=== PATIENT | male | born 1955 | race Caucasian/White ===

== ENCOUNTER 2017-07-21 13:48 | Emergency (ER) | payer BC, SELFPAY ==
[~2017-07-21] VITALS: Ht 180.3 cm; Wt 104.3 kg
[~2017-07-21 13:48] MED LIST: AMLO5 PO; ASPI325 PO; ASPI81CH PO; CARV25 PO; CARV3.125 PO; CARV6.25 PO; CEPH500 PO; CITA20 PO; DOCU100 PO; DULO30 PO; FERR325 PO; GABA300 PO; HYDACE10B PO; HYDACE5 PO; INSUASPI SC; INSULANI; INSULANI SC; INSULANPEN SQ; LISI5 PO; Lisinopril2.5 MG PO; Lopressor 25 mg25 MG PO; METF500 PO; METF500C PO; MULVITMINF PO; NAPR500 PO; NITR.4SL SL; OMEP20ER PO; PRAV20 PO; PRAVASTATIN; RANI150 PO; Simvastatin20 MG PO; TRAM50 PO; TRAZ100 PO; Testostero100 MG/1 M IM
[2017-07-21 15:43] LABS: BASOPHILS ABSOLUTE AUTO 0.04 K/mm3 (0.00-0.23); BASOPHILS PERCENT AUTO 1 % (0-2); EOSINOPHILS ABSOLUTE AUTO 0.19 K/mm3 (0.00-0.68); EOSINOPHILS PERCENT AUTO 3 % (0-6); Hematocrit 40.1 % (37.0-53.0); IMMATURE GRAN ABSOLUTE AUTO 0.03 K/mm3 (0.00-0.10); IMMATURE GRAN PERCENT AUTO 1 % (0-1); LYMPHOCYTES ABSOLUTE AUTO 1.07 K/mm3 (0.84-5.20); LYMPHOCYTES PERCENT AUTO 17 % (21-46); MONOCYTES PERCENT AUTO 11 % (4-13); Mean Corpuscular HGB 29.2 pg (26.0-34.0); Mean Corpuscular HGB Conc 34.9 g/dL (31.5-36.5); Mean Corpuscular Volume 84 fL (80-100); Mean Platelet Volume 9.9 fL (9.1-12.4); NEUTROPHILS ABSOLUTE AUTO 4.18 K/mm3 (1.96-9.15); NEUTROPHILS PERCENT AUTO 67 % (41-73); Platelet Count 221 K/mm3 (150-400); RDW Coefficient Variation 11.8 % (11.7-14.2); RDW Standard Deviation 35.8 fL (35.1-46.3); White Blood Cell Count 6.21 K/mm3 (4.00-11.30)
[2017-07-21 16:05] LABS: Alanine Aminotransfer (ALT/SGP 16 U/L (12-78); Albumin, Blood 3.3 g/dL (3.4-5.0); Albumin/Globulin Ratio 0.9 (0.8-1.8); Alk Phos 182 U/L (50-136); Anion Gap 8 mmol/L (6-16); Aspartate Aminotrans (AST/SGOT 13 U/L (12-37); Bilirubin, Total 0.5 mg/dL (0.1-1.0); Blood Urea Nitrogen 26 mg/dL (8-24); Bun/Creatinine Ratio 16.5 (12.0-20.0); CO2, Blood 25 mmol/L (21-32); Calcium, Blood 8.5 mg/dL (8.5-10.1); Chloride, Blood 105 mmol/L (98-108); Creatinine, Blood 1.58 mg/dL (0.60-1.20); Globulin, Blood 3.7 g/dL (2.2-4.0); Glomerular Filtration Rate 47 (60-); Glucose, Blood 534 mg/dL (70-99); Potassium, Blood 4.6 mmol/L (3.5-5.5); Sodium, Blood 138 mmol/L (136-145); Troponin I <0.015 ng/mL (0.000-0.040)
[2017-07-21] MEDS ORDERED: PREG50 PO (16:57)
[2017-07-21] MEDS ORDERED: ASPI325 PO (16:57)
[2017-07-21] MEDS ORDERED: LISI5 PO (16:57)
[2017-07-21] MEDS ORDERED: Ultram50 MG PO (18:26)
[2017-07-21] MEDS ORDERED: Zofran Odt4 MG PO (18:26)
[2017-08-26] MEDS ORDERED: EVENING PRIMR1000 MG PO (09:24)
[2017-08-26] MEDS ORDERED: CHOL10002 PO (09:24)
[2017-08-26] MEDS ORDERED: Hair, Skin & N1 EACH PO (09:26)
[2018-05-26] MEDS ORDERED: INSU100I6 (11:27)
[2018-05-26] MEDS ORDERED: ASPI81CH PO (11:28)
[2018-05-26] MEDS ORDERED: Fish Oil 10001000 MG PO (11:29)
[2018-05-26] MEDS ORDERED: PRAV20 PO (11:29)
== END 2017-07-21 18:56 | disposition home or self-care (01) ==
LOC: ER 13:48
PROVIDERS: Emergency Medicine
DX: K80.20 Calculus of gallbladder without cholecystitis without obstruction (principal); E11.40 Type 2 diabetes mellitus with diabetic neuropathy, unspecified; Z79.4 Long term (current) use of insulin; Z79.899 Other long term (current) drug therapy; Z79.82 Long term (current) use of aspirin
CPT/HCPCS: 36415; 74022; 74176; 80053; 83690; 84484; 85025; 93005; 93010; 99284; J7030

== ENCOUNTER 2017-09-07 12:15 | Emergency (ER) | payer BC, SELFPAY ==
[~2017-09-07] VITALS: Ht 180.3 cm; Wt 95.2 kg
[~2017-09-07 12:15] MED LIST changes: +CHOL10002 PO; +EVENING PRIMR1000 MG PO; +Hair, Skin & N1 EACH PO; +PREG50 PO; +Ultram50 MG PO; +Zofran Odt4 MG PO
[2017-09-07 12:41] LABS: BASOPHILS ABSOLUTE AUTO 0.03 K/mm3 (0.00-0.23); BASOPHILS PERCENT AUTO 1 % (0-2); EOSINOPHILS ABSOLUTE AUTO 0.11 K/mm3 (0.00-0.68); EOSINOPHILS PERCENT AUTO 2 % (0-6); Hematocrit 40.5 % (37.0-53.0); Hemoglobin 14.2 g/dL (13.5-17.5); IMMATURE GRAN ABSOLUTE AUTO 0.01 K/mm3 (0.00-0.10); IMMATURE GRAN PERCENT AUTO 0 % (0-1); LYMPHOCYTES ABSOLUTE AUTO 1.45 K/mm3 (0.84-5.20); LYMPHOCYTES PERCENT AUTO 28 % (21-46); MONOCYTES ABSOLUTE AUTO 0.72 K/mm3 (0.16-1.47); MONOCYTES PERCENT AUTO 14 % (4-13); Mean Corpuscular HGB 28.9 pg (26.0-34.0); Mean Corpuscular HGB Conc 35.1 g/dL (31.5-36.5); Mean Corpuscular Volume 82 fL (80-100); Mean Platelet Volume 9.8 fL (9.1-12.4); NEUTROPHILS ABSOLUTE AUTO 2.88 K/mm3 (1.96-9.15); NEUTROPHILS PERCENT AUTO 55 % (41-73); Platelet Count 189 K/mm3 (150-400); RDW Coefficient Variation 11.8 % (11.7-14.2); RDW Standard Deviation 34.7 fL (35.1-46.3); Red Blood Cell Count 4.92 M/mm3 (4.30-5.90)
[2017-09-07 13:01] LABS: Albumin, Blood 3.1 g/dL (3.4-5.0); Albumin/Globulin Ratio 0.8 (0.8-1.8); Bilirubin, Total 0.7 mg/dL (0.1-1.0); Bun/Creatinine Ratio 16.3 (12.0-20.0); Calcium, Blood 8.9 mg/dL (8.5-10.1); Creatinine, Blood 1.47 mg/dL (0.60-1.20); Globulin, Blood 3.7 g/dL (2.2-4.0); Potassium, Blood 3.8 mmol/L (3.5-5.5); Total Protein, Blood 6.8 g/dL (6.4-8.2)
[2017-09-07] MEDS ORDERED: Norco 5-325 Ta1 EACH PO (14:30)
[2018-05-26] MEDS ORDERED: INSU100I6 (11:27)
[2018-05-26] MEDS ORDERED: ASPI81CH PO (11:28)
[2018-05-26] MEDS ORDERED: PRAV20 PO (11:29)
[2018-05-26] MEDS ORDERED: Fish Oil 10001000 MG PO (11:29)
== END 2017-09-07 14:39 | disposition home or self-care (01) ==
LOC: ER 12:15
PROVIDERS: Psychiatry & Neurology Psychiatry
DX: R10.13 Epigastric pain (principal); E11.9 Type 2 diabetes mellitus without complications; I25.10 Atherosclerotic heart disease of native coronary artery without angina pectoris; Z88.8 Allergy status to other drugs, medicaments and biological substances; Z79.4 Long term (current) use of insulin; Z79.82 Long term (current) use of aspirin; Z79.899 Other long term (current) drug therapy
CPT/HCPCS: 36415; 80053; 83690; 85025; 99283

== ENCOUNTER 2017-10-07 11:42 | Inpatient (IN) | payer BC, SELFPAY ==
[~2017-10-07] VITALS: Ht 180.3 cm; Wt 99.8 kg
[~2017-10-07 11:42] MED LIST changes: +Norco 5-325 Ta1 EACH PO
[2017-10-07] MEDS ORDERED: Hydrocodone-Ap1 EA23 PO (11:58)
[2017-10-07 12:46] LABS: BASOPHILS ABSOLUTE AUTO 0.04 K/mm3 (0.00-0.23); BASOPHILS PERCENT AUTO 1 % (0-2); EOSINOPHILS ABSOLUTE AUTO 0.15 K/mm3 (0.00-0.68); EOSINOPHILS PERCENT AUTO 3 % (0-6); Hematocrit 40.3 % (37.0-53.0); Hemoglobin 13.5 g/dL (13.5-17.5); IMMATURE GRAN ABSOLUTE AUTO 0.02 K/mm3 (0.00-0.10); IMMATURE GRAN PERCENT AUTO 0 % (0-1); LYMPHOCYTES ABSOLUTE AUTO 1.05 K/mm3 (0.84-5.20); LYMPHOCYTES PERCENT AUTO 20 % (21-46); MONOCYTES ABSOLUTE AUTO 0.68 K/mm3 (0.16-1.47); MONOCYTES PERCENT AUTO 13 % (4-13); Mean Corpuscular HGB 28.8 pg (26.0-34.0); Mean Corpuscular HGB Conc 33.5 g/dL (31.5-36.5); Mean Corpuscular Volume 86 fL (80-100); Mean Platelet Volume 9.1 fL (9.1-12.4); NEUTROPHILS ABSOLUTE AUTO 3.29 K/mm3 (1.96-9.15); NEUTROPHILS PERCENT AUTO 63 % (41-73); Platelet Count 283 K/mm3 (150-400); RDW Coefficient Variation 12.4 % (11.7-14.2); RDW Standard Deviation 38.1 fL (35.1-46.3); Red Blood Cell Count 4.69 M/mm3 (4.30-5.90); White Blood Cell Count 5.23 K/mm3 (4.00-11.30)
[2017-10-07 12:56] LABS: Albumin, Blood 3.1 g/dL (3.4-5.0); Albumin/Globulin Ratio 0.8 (0.8-1.8); Bilirubin, Total 0.6 mg/dL (0.1-1.0); Bun/Creatinine Ratio 19.5 (12.0-20.0); Calcium, Blood 8.2 mg/dL (8.5-10.1); Creatinine, Blood 1.54 mg/dL (0.60-1.20); Globulin, Blood 4.1 g/dL (2.2-4.0); Potassium, Blood 4.2 mmol/L (3.5-5.5); Total Protein, Blood 7.2 g/dL (6.4-8.2)
[2017-10-07] MEDS ORDERED: Novolog100 UNIT/2 SC (18:20)
[2017-10-07] MEDS ORDERED: ASPI81CH PO (18:20)
[2017-10-08 04:05] LABS: BASOPHILS ABSOLUTE AUTO 0.03 K/mm3 (0.00-0.23); BASOPHILS PERCENT AUTO 1 % (0-2); EOSINOPHILS ABSOLUTE AUTO 0.17 K/mm3 (0.00-0.68); EOSINOPHILS PERCENT AUTO 3 % (0-6); Hematocrit 35.9 % (37.0-53.0); IMMATURE GRAN ABSOLUTE AUTO 0.01 K/mm3 (0.00-0.10); IMMATURE GRAN PERCENT AUTO 0 % (0-1); LYMPHOCYTES ABSOLUTE AUTO 1.29 K/mm3 (0.84-5.20); LYMPHOCYTES PERCENT AUTO 21 % (21-46); MONOCYTES ABSOLUTE AUTO 0.87 K/mm3 (0.16-1.47); MONOCYTES PERCENT AUTO 14 % (4-13); Mean Corpuscular HGB 28.7 pg (26.0-34.0); Mean Corpuscular HGB Conc 33.4 g/dL (31.5-36.5); Mean Corpuscular Volume 86 fL (80-100); Mean Platelet Volume 8.9 fL (9.1-12.4); NEUTROPHILS PERCENT AUTO 61 % (41-73); Platelet Count 225 K/mm3 (150-400); RDW Coefficient Variation 12.7 % (11.7-14.2); RDW Standard Deviation 38.9 fL (35.1-46.3); Red Blood Cell Count 4.18 M/mm3 (4.30-5.90); White Blood Cell Count 6.07 K/mm3 (4.00-11.30)
[2017-10-08 04:22] LABS: International Normalized Ratio 0.96
[2017-10-08 04:34] LABS: Albumin, Blood 2.7 g/dL (3.4-5.0); Albumin/Globulin Ratio 0.8 (0.8-1.8); Bilirubin, Total 0.6 mg/dL (0.1-1.0); Bun/Creatinine Ratio 17.7 (12.0-20.0); Calcium, Blood 8.3 mg/dL (8.5-10.1); Creatinine, Blood 1.64 mg/dL (0.60-1.20); Globulin, Blood 3.4 g/dL (2.2-4.0); Potassium, Blood 4.2 mmol/L (3.5-5.5); Total Protein, Blood 6.1 g/dL (6.4-8.2)
[2017-10-09 04:47] LABS: BASOPHILS ABSOLUTE AUTO 0.01 K/mm3 (0.00-0.23); BASOPHILS PERCENT AUTO 0 % (0-2); EOSINOPHILS PERCENT AUTO 0 % (0-6); Hematocrit 35.6 % (37.0-53.0); Hemoglobin 12.1 g/dL (13.5-17.5); IMMATURE GRAN ABSOLUTE AUTO 0.03 K/mm3 (0.00-0.10); IMMATURE GRAN PERCENT AUTO 0 % (0-1); LYMPHOCYTES ABSOLUTE AUTO 0.47 K/mm3 (0.84-5.20); LYMPHOCYTES PERCENT AUTO 7 % (21-46); MONOCYTES PERCENT AUTO 9 % (4-13); Mean Corpuscular HGB 29.5 pg (26.0-34.0); Mean Corpuscular Volume 87 fL (80-100); Mean Platelet Volume 9.8 fL (9.1-12.4); NEUTROPHILS ABSOLUTE AUTO 5.73 K/mm3 (1.96-9.15); NEUTROPHILS PERCENT AUTO 84 % (41-73); Platelet Count 226 K/mm3 (150-400); RDW Coefficient Variation 12.7 % (11.7-14.2); RDW Standard Deviation 39.6 fL (35.1-46.3); White Blood Cell Count 6.84 K/mm3 (4.00-11.30)
[2017-10-09 05:19] LABS: Albumin, Blood 2.8 g/dL (3.4-5.0); Anion Gap 8 mmol/L (6-16); Blood Urea Nitrogen 30 mg/dL (8-24); Bun/Creatinine Ratio 17.6 (12.0-20.0); CO2, Blood 24 mmol/L (21-32); Calcium, Blood 8.7 mg/dL (8.5-10.1); Chloride, Blood 110 mmol/L (98-108); Glomerular Filtration Rate 43 (60-); Glucose, Blood 241 mg/dL (70-99); Phosphorus, Blood 3.3 mg/dL (2.5-4.9); Potassium, Blood 4.5 mmol/L (3.5-5.5); Sodium, Blood 142 mmol/L (136-145)
[2017-10-09] MEDS ORDERED: MECL12.5 PO (13:50)
== END 2017-10-09 14:29 | disposition home or self-care (01) | DRG 418 ==
LOC: ER 11:42 → SURS 16:30
PROVIDERS: Emergency Medicine; Family Medicine; Internal Medicine; Surgery
PROC: BF131ZZ Fluoroscopy of Gallbladder and Bile Ducts using Low Osmolar Contrast (ICD-10-PCS; 2017-10-08)
PROC: 0FT44ZZ Resection of Gallbladder, Percutaneous Endoscopic Approach (ICD-10-PCS; principal; 2017-10-08 14:35)
DX: K80.01 Calculus of gallbladder with acute cholecystitis with obstruction (principal); Q60.0 Renal agenesis, unilateral; E78.5 Hyperlipidemia, unspecified; E11.22 Type 2 diabetes mellitus with diabetic chronic kidney disease; E11.65 Type 2 diabetes mellitus with hyperglycemia; N18.3 Chronic kidney disease, stage 3 (moderate); I12.9 Hypertensive chronic kidney disease with stage 1 through stage 4 chronic kidney disease, or unspecified chronic kidney disease; E11.42 Type 2 diabetes mellitus with diabetic polyneuropathy; I25.10 Atherosclerotic heart disease of native coronary artery without angina pectoris; F32.9 Major depressive disorder, single episode, unspecified; I25.2 Old myocardial infarction; Z95.1 Presence of aortocoronary bypass graft; Z95.5 Presence of coronary angioplasty implant and graft; Z79.84 Long term (current) use of oral hypoglycemic drugs; Z79.82 Long term (current) use of aspirin; Z79.4 Long term (current) use of insulin; Z79.899 Other long term (current) drug therapy; Z88.8 Allergy status to other drugs, medicaments and biological substances
CPT/HCPCS: 36415; 74300; 78226; 80053; 80069; 82947; 83036; 85025; 85610; 85730; 88304; 93005; 93010; 96365; 96366; 99285; A9537; C1729; J0295; J1100; J1644; J1815; J2250; J2370; J2405; J3010; J7030; J7042; J7120

== ENCOUNTER 2017-10-22 23:52 | Emergency (ER) | payer BC, SELFPAY ==
[~2017-10-22] VITALS: Ht 180.3 cm; Wt 104.3 kg
[~2017-10-22 23:52] MED LIST changes: +Hydrocodone-Ap1 EA23 PO; +MECL12.5 PO; +Novolog100 UNIT/2 SC
[2017-10-23 01:34] LABS: BASOPHILS ABSOLUTE AUTO 0.05 K/mm3 (0.00-0.23); BASOPHILS PERCENT AUTO 1 % (0-2); EOSINOPHILS PERCENT AUTO 5 % (0-6); Hematocrit 38.7 % (37.0-53.0); Hemoglobin 13.2 g/dL (13.5-17.5); IMMATURE GRAN ABSOLUTE AUTO 0.03 K/mm3 (0.00-0.10); IMMATURE GRAN PERCENT AUTO 1 % (0-1); LYMPHOCYTES ABSOLUTE AUTO 1.75 K/mm3 (0.84-5.20); LYMPHOCYTES PERCENT AUTO 27 % (21-46); MONOCYTES ABSOLUTE AUTO 0.87 K/mm3 (0.16-1.47); MONOCYTES PERCENT AUTO 13 % (4-13); Mean Corpuscular HGB 29.2 pg (26.0-34.0); Mean Corpuscular HGB Conc 34.1 g/dL (31.5-36.5); Mean Corpuscular Volume 86 fL (80-100); Mean Platelet Volume 9.6 fL (9.1-12.4); NEUTROPHILS ABSOLUTE AUTO 3.48 K/mm3 (1.96-9.15); NEUTROPHILS PERCENT AUTO 54 % (41-73); Platelet Count 214 K/mm3 (150-400); RDW Standard Deviation 40.1 fL (35.1-46.3); Red Blood Cell Count 4.52 M/mm3 (4.30-5.90); White Blood Cell Count 6.48 K/mm3 (4.00-11.30)
[2017-10-23 01:49] LABS: Albumin, Blood 3.1 g/dL (3.4-5.0); Albumin/Globulin Ratio 0.9 (0.8-1.8); Bilirubin, Total 0.5 mg/dL (0.1-1.0); Bun/Creatinine Ratio 18.5 (12.0-20.0); Calcium, Blood 8.4 mg/dL (8.5-10.1); Creatinine, Blood 1.68 mg/dL (0.60-1.20); Globulin, Blood 3.4 g/dL (2.2-4.0); Potassium, Blood 4.3 mmol/L (3.5-5.5); Total Protein, Blood 6.5 g/dL (6.4-8.2); Troponin I 0.017 ng/mL (0.000-0.040)
== END 2017-10-23 04:15 | disposition home or self-care (01) ==
LOC: ER 23:52
PROVIDERS: Emergency Medicine
DX: R10.9 Unspecified abdominal pain (principal); Z88.8 Allergy status to other drugs, medicaments and biological substances; Z79.899 Other long term (current) drug therapy; Z79.891 Long term (current) use of opiate analgesic; Z79.4 Long term (current) use of insulin; Z79.82 Long term (current) use of aspirin; E11.9 Type 2 diabetes mellitus without complications
CPT/HCPCS: 36415; 74176; 80053; 83690; 84484; 85025; 93005; 93010; 96374; 96375; 96376; 99284; J2405; J3010

== ENCOUNTER 2017-11-22 22:21 | Observation (INO) | payer BC, SELFPAY ==
[~2017-11-22] VITALS: Ht 180.3 cm; Wt 109.2 kg
[2017-11-22 23:10] LABS: BASOPHILS ABSOLUTE AUTO 0.03 K/mm3 (0.00-0.23); BASOPHILS PERCENT AUTO 1 % (0-2); EOSINOPHILS ABSOLUTE AUTO 0.25 K/mm3 (0.00-0.68); EOSINOPHILS PERCENT AUTO 4 % (0-6); Hematocrit 38.9 % (37.0-53.0); Hemoglobin 13.2 g/dL (13.5-17.5); IMMATURE GRAN ABSOLUTE AUTO 0.01 K/mm3 (0.00-0.10); IMMATURE GRAN PERCENT AUTO 0 % (0-1); LYMPHOCYTES ABSOLUTE AUTO 1.08 K/mm3 (0.84-5.20); LYMPHOCYTES PERCENT AUTO 18 % (21-46); MONOCYTES PERCENT AUTO 8 % (4-13); Mean Corpuscular HGB 28.9 pg (26.0-34.0); Mean Corpuscular HGB Conc 33.9 g/dL (31.5-36.5); Mean Corpuscular Volume 85 fL (80-100); Mean Platelet Volume 10.1 fL (9.1-12.4); NEUTROPHILS ABSOLUTE AUTO 4.07 K/mm3 (1.96-9.15); NEUTROPHILS PERCENT AUTO 69 % (41-73); Platelet Count 194 K/mm3 (150-400); RDW Coefficient Variation 12.6 % (11.7-14.2); RDW Standard Deviation 38.7 fL (35.1-46.3); Red Blood Cell Count 4.56 M/mm3 (4.30-5.90); White Blood Cell Count 5.94 K/mm3 (4.00-11.30)
[2017-11-22 23:31] LABS: Alanine Aminotransfer (ALT/SGP 16 U/L (12-78); Albumin, Blood 2.9 g/dL (3.4-5.0); Albumin/Globulin Ratio 0.9 (0.8-1.8); Alk Phos 93 U/L (50-136); Anion Gap 8 mmol/L (6-16); Aspartate Aminotrans (AST/SGOT 18 U/L (12-37); Bilirubin, Total 0.8 mg/dL (0.1-1.0); Blood Urea Nitrogen 25 mg/dL (8-24); Bun/Creatinine Ratio 14.9 (12.0-20.0); CO2, Blood 24 mmol/L (21-32); Calcium, Blood 8.5 mg/dL (8.5-10.1); Chloride, Blood 113 mmol/L (98-108); Creatinine, Blood 1.68 mg/dL (0.60-1.20); Globulin, Blood 3.4 g/dL (2.2-4.0); Glomerular Filtration Rate 44 (60-); Glucose, Blood 109 mg/dL (70-99); Potassium, Blood 3.9 mmol/L (3.5-5.5); Sodium, Blood 145 mmol/L (136-145); Total Protein, Blood 6.3 g/dL (6.4-8.2); Troponin I <0.015 ng/mL (0.000-0.040)
[2017-11-23 06:20] LABS: BASOPHILS ABSOLUTE AUTO 0.03 K/mm3 (0.00-0.23); BASOPHILS PERCENT AUTO 0 % (0-2); EOSINOPHILS PERCENT AUTO 2 % (0-6); Hematocrit 38.2 % (37.0-53.0); Hemoglobin 13.1 g/dL (13.5-17.5); IMMATURE GRAN ABSOLUTE AUTO 0.05 K/mm3 (0.00-0.10); IMMATURE GRAN PERCENT AUTO 0 % (0-1); LYMPHOCYTES ABSOLUTE AUTO 0.95 K/mm3 (0.84-5.20); LYMPHOCYTES PERCENT AUTO 8 % (21-46); MONOCYTES ABSOLUTE AUTO 1.16 K/mm3 (0.16-1.47); MONOCYTES PERCENT AUTO 10 % (4-13); Mean Corpuscular HGB 29.4 pg (26.0-34.0); Mean Corpuscular HGB Conc 34.3 g/dL (31.5-36.5); Mean Corpuscular Volume 86 fL (80-100); Mean Platelet Volume 10.1 fL (9.1-12.4); NEUTROPHILS ABSOLUTE AUTO 9.87 K/mm3 (1.96-9.15); NEUTROPHILS PERCENT AUTO 81 % (41-73); Platelet Count 199 K/mm3 (150-400); RDW Coefficient Variation 12.8 % (11.7-14.2); RDW Standard Deviation 39.9 fL (35.1-46.3); Red Blood Cell Count 4.45 M/mm3 (4.30-5.90); White Blood Cell Count 12.26 K/mm3 (4.00-11.30)
[2017-11-23 07:08] LABS: Albumin, Blood 2.9 g/dL (3.4-5.0); Albumin/Globulin Ratio 0.9 (0.8-1.8); Bilirubin, Total 0.7 mg/dL (0.1-1.0); Bun/Creatinine Ratio 16.7 (12.0-20.0); Calcium, Blood 8.2 mg/dL (8.5-10.1); Creatinine, Blood 1.92 mg/dL (0.60-1.20); Globulin, Blood 3.3 g/dL (2.2-4.0); Potassium, Blood 4.6 mmol/L (3.5-5.5); Total Protein, Blood 6.2 g/dL (6.4-8.2)
== END 2017-11-23 13:15 | disposition home or self-care (01) ==
LOC: ER 22:21 → SURS 22:22
PROVIDERS: Emergency Medicine; Internal Medicine
DX: T38.3X1A Poisoning by insulin and oral hypoglycemic [antidiabetic] drugs, accidental (unintentional), initial encounter (principal); E11.649 Type 2 diabetes mellitus with hypoglycemia without coma; E11.40 Type 2 diabetes mellitus with diabetic neuropathy, unspecified; E11.22 Type 2 diabetes mellitus with diabetic chronic kidney disease; I12.9 Hypertensive chronic kidney disease with stage 1 through stage 4 chronic kidney disease, or unspecified chronic kidney disease; N18.2 Chronic kidney disease, stage 2 (mild); E78.5 Hyperlipidemia, unspecified; F32.9 Major depressive disorder, single episode, unspecified; I25.10 Atherosclerotic heart disease of native coronary artery without angina pectoris; Z79.4 Long term (current) use of insulin; Z79.82 Long term (current) use of aspirin; Z79.899 Other long term (current) drug therapy; Z95.5 Presence of coronary angioplasty implant and graft; Y92.830 Public park as the place of occurrence of the external cause
CPT/HCPCS: 36415; 80053; 82947; 83036; 84484; 85025; 93005; 93010; 96361; 96372; 96374; 96375; 99285; G0378; J1610; J1650; J1815; J2405; J7131

== ENCOUNTER 2018-01-05 09:54 | Day surgery (SDC) | payer BC, SELFPAY ==
[~2018-01-05] VITALS: Ht 180.3 cm; Wt 110.9 kg
== END 2018-01-05 12:53 | disposition home or self-care (01) ==
LOC: ORSCSDS 09:54
PROVIDERS: Internal Medicine Gastroenterology
PROC: 0DB68ZX Excision of Stomach, Via Natural or Artificial Opening Endoscopic, Diagnostic (ICD-10-PCS; principal; 2018-01-05 11:15)
PROC: 0DB58ZX Excision of Esophagus, Via Natural or Artificial Opening Endoscopic, Diagnostic (ICD-10-PCS; principal; 2018-01-05 11:15)
PROC: 0DBE8ZX Excision of Large Intestine, Via Natural or Artificial Opening Endoscopic, Diagnostic (ICD-10-PCS; principal; 2018-01-05 11:15)
PROC: 0DBK8ZX Excision of Ascending Colon, Via Natural or Artificial Opening Endoscopic, Diagnostic (ICD-10-PCS; principal; 2018-01-05 11:15)
PROC: 0DB98ZX Excision of Duodenum, Via Natural or Artificial Opening Endoscopic, Diagnostic (ICD-10-PCS; principal; 2018-01-05 11:15)
DX: R19.7 Diarrhea, unspecified (principal); K29.80 Duodenitis without bleeding; K29.70 Gastritis, unspecified, without bleeding; K21.9 Gastro-esophageal reflux disease without esophagitis; D12.2 Benign neoplasm of ascending colon; K57.30 Diverticulosis of large intestine without perforation or abscess without bleeding; E11.29 Type 2 diabetes mellitus with other diabetic kidney complication; I12.9 Hypertensive chronic kidney disease with stage 1 through stage 4 chronic kidney disease, or unspecified chronic kidney disease; N18.3 Chronic kidney disease, stage 3 (moderate); I25.10 Atherosclerotic heart disease of native coronary artery without angina pectoris; Z79.4 Long term (current) use of insulin; Z79.82 Long term (current) use of aspirin; Z79.899 Other long term (current) drug therapy
CPT/HCPCS: 82947; 88305; 88342; J1980; J7120

== ENCOUNTER 2018-07-07 09:16 | Emergency (ER) | payer BC ==
[~2018-07-07] VITALS: Ht 180.3 cm; Wt 108.9 kg
[~2018-07-07 09:16] MED LIST changes: +Fish Oil 10001000 MG PO; +INSU100I6
[2018-07-07 11:17] LABS: BASOPHILS ABSOLUTE AUTO 0.01 K/mm3 (0.00-0.23); BASOPHILS PERCENT AUTO 0 % (0-2); EOSINOPHILS ABSOLUTE AUTO 0.12 K/mm3 (0.00-0.68); EOSINOPHILS PERCENT AUTO 3 % (0-6); Hematocrit 35.6 % (37.0-53.0); Hemoglobin 11.8 g/dL (13.5-17.5); IMMATURE GRAN ABSOLUTE AUTO 0.02 K/mm3 (0.00-0.10); IMMATURE GRAN PERCENT AUTO 0 % (0-1); LYMPHOCYTES ABSOLUTE AUTO 0.87 K/mm3 (0.84-5.20); LYMPHOCYTES PERCENT AUTO 18 % (21-46); MONOCYTES PERCENT AUTO 17 % (4-13); Mean Corpuscular HGB 29.1 pg (26.0-34.0); Mean Corpuscular HGB Conc 33.1 g/dL (31.5-36.5); Mean Corpuscular Volume 88 fL (80-100); Mean Platelet Volume 9.9 fL (9.1-12.4); NEUTROPHILS ABSOLUTE AUTO 2.94 K/mm3 (1.96-9.15); NEUTROPHILS PERCENT AUTO 62 % (41-73); Platelet Count 183 K/mm3 (150-400); RDW Coefficient Variation 12.1 % (11.7-14.2); RDW Standard Deviation 38.7 fL (35.1-46.3); Red Blood Cell Count 4.05 M/mm3 (4.30-5.90); White Blood Cell Count 4.76 K/mm3 (4.00-11.30)
[2018-07-07 11:54] LABS: Albumin/Globulin Ratio 0.8 (0.8-1.8); Bilirubin, Total 0.5 mg/dL (0.1-1.0); Bun/Creatinine Ratio 20.6 (12.0-20.0); Calcium, Blood 8.2 mg/dL (8.5-10.1); Creatinine, Blood 1.75 mg/dL (0.60-1.20); Globulin, Blood 3.6 g/dL (2.2-4.0); Total Protein, Blood 6.6 g/dL (6.4-8.2)
[2018-07-07 14:40] LABS: Source, Urine Voided
[2018-07-07 14:44] LABS: Appearance, Urine Clear (Clear); Bilirubin, Urine Neg (Neg); Blood, Urine 2+ (Neg); Color, Urine Yellow (P-Yellow); Glucose Qualitative, Urine Neg (Neg); Ketones, Urine Neg (Neg); Leukocyte Esterase, Urine Neg (Neg); Nitrite, Urine Neg (Neg); Protein, Urine 3+ (Neg); Specific Gravity, Urine 1.025 (1.003-1.022); Urobilinogen, Urine NORM (Normal)
[2018-07-07 15:03] LABS: Bacteria Mod /hpf; Squamous Epithelial Cells Few /hpf (Few)
== END 2018-07-07 15:30 | disposition home or self-care (01) ==
LOC: ER 09:16
PROVIDERS: Emergency Medicine
DX: E86.0 Dehydration (principal); R19.7 Diarrhea, unspecified; E11.22 Type 2 diabetes mellitus with diabetic chronic kidney disease; N18.3 Chronic kidney disease, stage 3 (moderate); Z88.8 Allergy status to other drugs, medicaments and biological substances; Z79.899 Other long term (current) drug therapy; Z79.4 Long term (current) use of insulin; Z79.82 Long term (current) use of aspirin
CPT/HCPCS: 36415; 80053; 81001; 85025; 87077; 87086; 87186; 93005; 93010; 96360; 96361; 99284-25; J7030

== ENCOUNTER 2018-09-24 08:02 | Inpatient (IN) | payer BC ==
[~2018-09-24] VITALS: Ht 180.3 cm; Wt 107.2 kg
[2018-09-24] MEDS ORDERED: TOUJEO SOL300 UNIT/1 SQ (08:40)
[2018-09-24 08:53] LABS: BASOPHILS ABSOLUTE AUTO 0.06 K/mm3 (0.00-0.23); BASOPHILS PERCENT AUTO 1 % (0-2); EOSINOPHILS ABSOLUTE AUTO 0.41 K/mm3 (0.00-0.68); EOSINOPHILS PERCENT AUTO 6 % (0-6); Hematocrit 37.9 % (37.0-53.0); IMMATURE GRAN ABSOLUTE AUTO 0.02 K/mm3 (0.00-0.10); IMMATURE GRAN PERCENT AUTO 0 % (0-1); LYMPHOCYTES ABSOLUTE AUTO 0.69 K/mm3 (0.84-5.20); LYMPHOCYTES PERCENT AUTO 10 % (21-46); MONOCYTES ABSOLUTE AUTO 0.67 K/mm3 (0.16-1.47); MONOCYTES PERCENT AUTO 10 % (4-13); Mean Corpuscular HGB 28.2 pg (26.0-34.0); Mean Corpuscular HGB Conc 31.7 g/dL (31.5-36.5); Mean Corpuscular Volume 89 fL (80-100); Mean Platelet Volume 10.9 fL (9.1-12.4); NEUTROPHILS ABSOLUTE AUTO 5.05 K/mm3 (1.96-9.15); NEUTROPHILS PERCENT AUTO 73 % (41-73); Platelet Count 174 K/mm3 (150-400); RDW Coefficient Variation 12.6 % (11.7-14.2); RDW Standard Deviation 40.6 fL (35.1-46.3); Red Blood Cell Count 4.26 M/mm3 (4.30-5.90)
[2018-09-24 09:19] LABS: Albumin, Blood 3.2 g/dL (3.4-5.0); Albumin/Globulin Ratio 0.9 (0.8-1.8); Bilirubin, Total 0.5 mg/dL (0.1-1.0); Bun/Creatinine Ratio 17.9 (12.0-20.0); Calcium, Blood 8.2 mg/dL (8.5-10.1); Creatinine, Blood 1.9 mg/dL (0.60-1.20); Globulin, Blood 3.5 g/dL (2.2-4.0); Potassium, Blood 5.1 mmol/L (3.5-5.5); Total Protein, Blood 6.7 g/dL (6.4-8.2); Troponin I 0.026 ng/mL (0.000-0.040)
--- NOTE | 2018-09-24 14:03 | NUR ---
ECHOCARDIOGRAM COMPLETE
[2018-09-24 17:29] LABS: Troponin I 0.028 ng/mL (0.000-0.040)
[2018-09-24 17:34] LABS: Creatine Kinase MB 7.3 ng/mL (0.0-3.6); Creatine Kinase MB Index 2.4 (0.0-4.0)
[2018-09-24 21:40] LABS: Creatine Kinase MB 6.7 ng/mL (0.0-3.6); Creatine Kinase MB Index 2.3 (0.0-4.0); Troponin I 0.029 ng/mL (0.000-0.040)
--- NOTE | 2018-09-25 03:32 | NUR ---
SHIFT SUMMARY NO ACUTE CHANGES TO PRESENT THIS SHIFT. PT HAS RESTED WELL SINCE HS. NO C/O. USING URINAL AT BS. ADMITTED FOR CHF PRIOR TO START OF NOC SHIFT. CO-OP WITH FLUID RESTRICTION. CONSULT CALLED TO DR MILLER AT 191; PER ORDERS AT START OF SHIFT. C/O BEING COLD, REQUESTING HEAT TURNED ON, LATER REPORTED THAT HE WAS COMFORTABLE. DENIED FURTHER NEEDS. CALL LT IN REACH.
[2018-09-25 05:37] LABS: BASOPHILS ABSOLUTE AUTO 0.07 K/mm3 (0.00-0.23); BASOPHILS PERCENT AUTO 1 % (0-2); EOSINOPHILS ABSOLUTE AUTO 0.49 K/mm3 (0.00-0.68); EOSINOPHILS PERCENT AUTO 8 % (0-6); Hematocrit 37.2 % (37.0-53.0); Hemoglobin 11.7 g/dL (13.5-17.5); IMMATURE GRAN ABSOLUTE AUTO 0.01 K/mm3 (0.00-0.10); IMMATURE GRAN PERCENT AUTO 0 % (0-1); LYMPHOCYTES ABSOLUTE AUTO 0.98 K/mm3 (0.84-5.20); LYMPHOCYTES PERCENT AUTO 16 % (21-46); MONOCYTES ABSOLUTE AUTO 0.74 K/mm3 (0.16-1.47); MONOCYTES PERCENT AUTO 12 % (4-13); Mean Corpuscular HGB 28.2 pg (26.0-34.0); Mean Corpuscular HGB Conc 31.5 g/dL (31.5-36.5); Mean Corpuscular Volume 90 fL (80-100); Mean Platelet Volume 10.4 fL (9.1-12.4); NEUTROPHILS ABSOLUTE AUTO 3.88 K/mm3 (1.96-9.15); NEUTROPHILS PERCENT AUTO 63 % (41-73); Platelet Count 172 K/mm3 (150-400); RDW Coefficient Variation 12.6 % (11.7-14.2); RDW Standard Deviation 41.1 fL (35.1-46.3); Red Blood Cell Count 4.15 M/mm3 (4.30-5.90); White Blood Cell Count 6.17 K/mm3 (4.00-11.30)
[2018-09-25 05:57] LABS: Albumin, Blood 2.9 g/dL (3.4-5.0); Albumin/Globulin Ratio 0.9 (0.8-1.8); Bilirubin, Total 0.8 mg/dL (0.1-1.0); Bun/Creatinine Ratio 17.9 (12.0-20.0); Calcium, Blood 8.6 mg/dL (8.5-10.1); Creatinine, Blood 2.01 mg/dL (0.60-1.20); Globulin, Blood 3.3 g/dL (2.2-4.0); Magnesium, Blood 2.4 mg/dL (1.6-2.4); Phosphorus, Blood 4.2 mg/dL (2.5-4.9); Potassium, Blood 4.6 mmol/L (3.5-5.5); Total Protein, Blood 6.2 g/dL (6.4-8.2)
--- NOTE | 2018-09-25 16:50 | NUR ---
PT IS AOX4 AND COOPERATIVE OF ALL CARE. PT INDEPENDENT IN ROOM AND DENIES ANY PAIN AT THIS TIME. PT STATES HE IS SOB HAS GONE AWAY AND IS FEELING MUCH BETTER. PT DID HAVE A LOWER BP AT 1434 ONE HOUR AFTER RECIEVING HIS COZAAR, PLEASE REFER TO EMAR FOR DOSAGE. PT REPORTED FEELING HIS EYE SIGHT HAD GOTTEN BLURRY AND WAS AFFECITNG SEEING THE HANDS ON THE CLOCK AND THE TV. BP WAS 105/68. CALLED DR GARDNER AND SHE ORDERED TO JUST MONITOR PT. PT DENIED FEELING DIZZY AND WHEN RECHECKED AND HOUR LATER BP WAS 140/83. WILL CONTINUE TO MONITOR.
--- NOTE | 2018-09-26 04:05 | NUR ---
SHIFT SUMMARY PT ADMITTED FOR CHF. FULL CODE. CARDIAC DIET. 1500 ML FLUID RESTRICTION. CBG AT AC AND HS. LOVENOX. 20G MC TO L AC. TAKES MEDS WHOLE WITH WATER. INDEPENDENT IN ROOM THE PT PRESENTED TO THE ED WITH C/O SOB. THE PT HAS A HX OF QUAD BYPASS WITH STENTS, CHG, AND SOLITARY KIDNEY WITH STAGE 3 CKD. THE PT REPORTED INCREASING SOB, BLLE EDEMA, AND SCROTAL EDEMA WITH A WEIGHT GAIN OF 50 POUNDS OVER THE PAST 9 MONTHS. THE PT IS ALERT AND ORIENTED X3, PLEASENT AND COOPERATIVE WITH CARE. THE PT REPORTED 8/10 SHOOTING AND BURNING PAINS TO BLLE AND DIFFICULTY HAVING A BP. CALL TO HOSPITALIST AND OBTAINED ORDER FOR TYLENOL, MEDICATED PER ORDER, NO ADDITIONAL COMPLAINTS SO FAR. PT REFUSED STOOL SOFTENER, OFFERED ADDITIONAL BOWEL CARE MEDS AND PT REFUSED. PT DID STATE THAT HE HAD A SMALL BM TONIGHT AND STATED IT IS NOT UNUSUAL FOR HIM TO GO 11 DAYS WITHOUT BM. PT APPEARS TO BE SLEEPING COMFORTABLY AT THIS TIME WITH NO APPARENT SIGNS OF ACUTE DISTRESS. ABLE TO MAKE NEEDS KNOWN AND CALL LIGHT IN REACH.
[2018-09-26 05:35] LABS: Calcium, Blood 8.2 mg/dL (8.5-10.1); Potassium, Blood 4.2 mmol/L (3.5-5.5)
[2018-09-26] MEDS ORDERED: ACET325 PO (14:03)
[2018-09-26] MEDS ORDERED: FURO40 PO (14:04)
[2018-09-26] MEDS ORDERED: LOSA25 PO (14:22)
[2018-09-26] MEDS ORDERED: METO10SY PO (14:24)
[2018-09-26] MEDS ORDERED: POTCHL10ER PO (14:25)
--- NOTE | 2018-09-26 15:09 | NUR ---
PT DISCHARGED TODAY AOX4 AND INDEPENDENT IN ROOM. PT DENIES ANY CHEST PAIN OR SOB. ALL MEDICATIONS FAXED TO [facility] AND PAPERS REVIEWED AND SIGNED. EDUCATIONAL MATERIAL SENT WITH PT. NO DISTRESS NOTED, THIS DIRECTOR [facility] ESCORTED OUT TO N ENTRANCE VIA WHEELCHAIR.
== END 2018-09-26 14:50 | disposition home or self-care (01) | DRG 291 ==
LOC: ER 08:02 → ERHOLD 08:03 → MEDS 08:03 → ER 08:03 → MEDS 08:04 → ERHOLD 17:55 → MEDS 17:55
PROVIDERS: Emergency Medicine; Hospitalist; ADMIT Internal Medicine
DX: I13.0 Hypertensive heart and chronic kidney disease with heart failure and stage 1 through stage 4 chronic kidney disease, or unspecified chronic kidney disease (principal); I50.23 Acute on chronic systolic (congestive) heart failure; Q60.2 Renal agenesis, unspecified; N17.9 Acute kidney failure, unspecified; N18.3 Chronic kidney disease, stage 3 (moderate); E11.65 Type 2 diabetes mellitus with hyperglycemia; I25.10 Atherosclerotic heart disease of native coronary artery without angina pectoris; I08.1 Rheumatic disorders of both mitral and tricuspid valves; E11.22 Type 2 diabetes mellitus with diabetic chronic kidney disease; E11.42 Type 2 diabetes mellitus with diabetic polyneuropathy; E78.5 Hyperlipidemia, unspecified; D63.1 Anemia in chronic kidney disease; E66.9 Obesity, unspecified; Z88.8 Allergy status to other drugs, medicaments and biological substances; Z95.1 Presence of aortocoronary bypass graft; I25.2 Old myocardial infarction; Z95.5 Presence of coronary angioplasty implant and graft; Z79.4 Long term (current) use of insulin; Z79.899 Other long term (current) drug therapy
CPT/HCPCS: 36415; 71046; 80048; 80053; 82550; 82553; 82570; 82947; 83735; 83880; 84100; 84156; 84443; 84484; 85025; 93005; 93010; 93306; 96374; 99285-25; J1650; J1940

== ENCOUNTER 2019-01-10 12:18 | Emergency (ER) | payer MEDICARE ==
[~2019-01-10] VITALS: Ht 180.3 cm; Wt 108.9 kg
[~2019-01-10 12:18] MED LIST changes: +ACET325 PO; -CARV3.125 PO; +FURO40 PO; +LOSA25 PO; +METO10SY PO; +POTCHL10ER PO; +TOUJEO SOL300 UNIT/1 SQ
[2019-01-10 12:51] LABS: BASOPHILS ABSOLUTE AUTO 0.02 K/mm3 (0.00-0.23); BASOPHILS PERCENT AUTO 0 % (0-2); EOSINOPHILS ABSOLUTE AUTO 0.06 K/mm3 (0.00-0.68); EOSINOPHILS PERCENT AUTO 1 % (0-6); Hematocrit 34.1 % (37.0-53.0); Hemoglobin 11.6 g/dL (13.5-17.5); IMMATURE GRAN ABSOLUTE AUTO 0.03 K/mm3 (0.00-0.10); IMMATURE GRAN PERCENT AUTO 0 % (0-1); LYMPHOCYTES ABSOLUTE AUTO 0.61 K/mm3 (0.84-5.20); LYMPHOCYTES PERCENT AUTO 8 % (21-46); MONOCYTES ABSOLUTE AUTO 0.55 K/mm3 (0.16-1.47); MONOCYTES PERCENT AUTO 7 % (4-13); Mean Corpuscular Volume 85 fL (80-100); Mean Platelet Volume 10.4 fL (9.1-12.4); NEUTROPHILS ABSOLUTE AUTO 6.27 K/mm3 (1.96-9.15); NEUTROPHILS PERCENT AUTO 83 % (41-73); Platelet Count 185 K/mm3 (150-400); RDW Coefficient Variation 12.7 % (11.7-14.2); RDW Standard Deviation 39.2 fL (35.1-46.3); White Blood Cell Count 7.54 K/mm3 (4.00-11.30)
[2019-01-10 13:14] LABS: Albumin, Blood 3.3 g/dL (3.4-5.0); Bilirubin, Total 0.7 mg/dL (0.1-1.0); Bun/Creatinine Ratio 21.1 (12.0-20.0); Calcium, Blood 8.5 mg/dL (8.5-10.1); Creatinine, Blood 1.85 mg/dL (0.60-1.20); Globulin, Blood 3.3 g/dL (2.2-4.0); Potassium, Blood 4.5 mmol/L (3.5-5.5); Total Protein, Blood 6.6 g/dL (6.4-8.2)
[2019-01-10] MEDS ORDERED: LORA2 PO (13:30)
[2019-01-10] MEDS ORDERED: MOTION RELIEF25 MG PO (13:30)
[2019-01-10] MEDS ORDERED: Zofran8 MG PO (13:30)
[2019-03-09] MEDS ORDERED: Aspir 8181 MG PO (15:06)
[2019-03-09] MEDS ORDERED: SPIR25 PO (15:07)
[2019-03-09] MEDS ORDERED: TAMS.4ER PO (15:08)
[2019-03-09] MEDS ORDERED: Vitamin D2000 UNIT PO (15:08)
[2019-03-09] MEDS ORDERED: Isosorbide Mono30 MG PO (15:09)
[2019-03-09] MEDS ORDERED: LOSA25 PO (15:09)
[2019-03-09] MEDS ORDERED: HYDR10 PO (15:10)
== END 2019-01-10 14:12 | disposition home or self-care (01) ==
LOC: ER 12:18
PROVIDERS: Physician Assistant
DX: R42 Dizziness and giddiness (principal); E11.22 Type 2 diabetes mellitus with diabetic chronic kidney disease; I12.9 Hypertensive chronic kidney disease with stage 1 through stage 4 chronic kidney disease, or unspecified chronic kidney disease; N18.9 Chronic kidney disease, unspecified; E78.5 Hyperlipidemia, unspecified
CPT/HCPCS: 36415; 80053; 82947; 85025; 93005; 93010; 96374; 99284-25; J2405

== ENCOUNTER 2019-03-10 08:54 | Observation (INO) | payer MEDICARE ==
[~2019-03-10] VITALS: Ht 180.3 cm; Wt 112.0 kg
[~2019-03-10 08:54] MED LIST changes: +Aspir 8181 MG PO; +HYDR10 PO; +Isosorbide Mono30 MG PO; +LORA2 PO; +MOTION RELIEF25 MG PO; +SPIR25 PO; +TAMS.4ER PO; +Vitamin D2000 UNIT PO; +Zofran8 MG PO
--- NOTE | 2019-03-10 15:17 | NUR ---
ARRIVAL PT ARRIVED TO UNIT FROM [facility] VIA BED APRROX. 1415. ORIENTED PT TO ROON, UNIT AND POLICIES. ADMISSION PROCESS COMPLETED. BEGAN MONITOR PT VITAL SIGNS PER PROTOCOL. PT HAS LEFT UPPPER CHEST INCISION FROM DUAL CHAMBER ICD PLACEMENT TODAY. GAUZE AND TEGADERM DRESSING IN PLACE. NO DRAINAGE NOTED. PT REPORTS SLGIHT DISCOMFORT. PROVIDED PT WITH ICE PACK FOR THIS. WILL CONTININUE TO MONITOR THIS AND IF WORSENS WILL PROVIDE PAIN MEDICATIONS PER EMAR. AFTER COMPLETING ADMISSION PROCESS IT WAS NOTED THAT PT DID NOT HAVE ADMITTING ORDERS OR ORDERS FOR CODE STATUS. TALKED WITH HEAD PACKAGER ABOUT THIS AND HEART CENTER STAFF WAS CONTACTED. HEART CENTER STAFF REPROTS THEY WILL NOTIFIY PHYSICIAN TO PUT ORDERS IN ONCE PHYSICIAN IS OUT OF PROCEDURE. BED IN LOW POSITION, CALL LIGHT IN REACH AND PT DENIES ANY NEEDS. WILL CONTINUE TO MONITOR.
--- NOTE | 2019-03-10 15:23 | NUR ---
ADDITION TO PREVIOUS NOTE INCISION SITE ON LEFT UPPPER CHEST. NO SWELLING, BRUISING OR HEMATOMA NOTED. SKIN SOFT AND NONTENDER WITH PALPITATION.
--- NOTE | 2019-03-10 15:57 | NUR ---
NOTE PT HAS A 12 SECOND RUN OF V. TACH NOTED ON TRADE MANAGER. UPON ENTERING PT ROOM TO CHECK ON HIM OT WAS SLEEP. AWOKE PT AND PT REPORTS FEELING NORMAL. NOTIFIED PROVIDER OF THIS AND PROVIDER STATES THIS WAS THE REASON FOR THE PLACEMENT OF THE ICD TODAY. NO CHANGES TO ORDERS. WILL CONTINUE TO MONITOR.
--- NOTE | 2019-03-10 17:52 | NUR ---
SHIFT SUMMARY PT PLEASANT, COOPERATIVE AND USES CALL LIGHT APPROPRIATELY. PT REMAINS A&OX4, ALTHOUGH SLIGHTLY FORGETFUL ON OCCASION WHEN GIVEN INSTRUCTIONS TO FOLLOW. PT ABLE TO REST FOR MOST OF EVENING SINCE ARRIVING TO UNIT. PT AWOKE TO SIT UP AND HAVE DINNER. PT ABLE TO AMBULATE TO BATHROOM NEEDED AND TOLERATED WELL. SLING IN PLACE ON LEFT ARM. PT REPORTS DISCOMFORT AT LEFT UPPER CHEST. PRN PAIN MEDICATION GIVEN PER EMAR. ICE PACK PROVIDED TO HELP WITH THIS. CADIOLOGIST IN TO SEE PT THIS EVENING AND STATES WE WILL MONITOR PT OVER NIGHT AND LONG EVERYTHING CONTINUES TO GO WELL. THE PLAN IS TO SENT HIM HOME IN THE MORNING. BED IN LOW POSITION, CALL LIGHT IN REACH AND PT DENIES ANY NEEDS WILL CONTINUE TO MONITOR UNTIL HANDOFF TO NIGHTSHIFT RN
--- NOTE | 2019-03-11 04:43 | NUR ---
SHIFT SUMMARY: PATIENT C/O PAIN AT SURGICAL SITE, SLING INTACT AND PATIENT COOPERATIVE WITH CARE. PATIENT ABLE TO SLEEP AFTER PAIN MEDICATION AND ALL VSS. CALL LIGHT WITHIN REACH, BED LOW AND LOCKED.
--- NOTE | 2019-03-11 07:00 | NUR ---
REPORT FROM KIMBERLY BUCIO. ASSUMED PT CARE.
--- NOTE | 2019-03-11 07:30 | NUR ---
VSS. PT ALERT AND ORIENTED. PLAN FOR DC TODAY. ASSESSMENT CHARTED.
--- NOTE | 2019-03-11 08:35 | NUR ---
PT MEDICATED PER EMAR. SITTING UP ON SIDE OF BED EATING.
--- NOTE | 2019-03-11 08:45 | NUR ---
DR ALVARADO TO ROOM. VERBAL ORDERS TO GIVE ADDITIONAL DOSE OF PT COREG. PLAN TO DC PT HOME. CHARGE AWARE.
--- NOTE | 2019-03-11 09:56 | NUR ---
PT MEDICATED WITH ADDITIONAL COREG PER PROVIDER ORDERS.
--- NOTE | 2019-03-11 11:45 | NUR ---
IV REMOVED, TIP INTACT. DRESSING PLACED.
--- NOTE | 2019-03-11 11:50 | NUR ---
IV REMOVED. DISCUSSED DC INSTRUCTIONS AND FU INFORMATION. PT EATING PROVIDED LUNCH.
--- NOTE | 2019-03-11 12:29 | NUR ---
PT ESCORTED OUT VIA WC WITH ALL BELONGINGS AND FU INSTRUCTIONS. PT VERBALIZED UNDERSTANDING.
== END 2019-03-11 12:29 | disposition home or self-care (01) ==
LOC: MHTC 08:54 → PCU 14:24 → MHTC 15:52 → PCU 03-11 12:29
PROVIDERS: ADMIT Internal Medicine Cardiovascular Disease
DX: I25.5 Ischemic cardiomyopathy (principal); I65.21 Occlusion and stenosis of right carotid artery; I25.10 Atherosclerotic heart disease of native coronary artery without angina pectoris; I25.2 Old myocardial infarction; I12.9 Hypertensive chronic kidney disease with stage 1 through stage 4 chronic kidney disease, or unspecified chronic kidney disease; E11.22 Type 2 diabetes mellitus with diabetic chronic kidney disease; N18.3 Chronic kidney disease, stage 3 (moderate); E11.42 Type 2 diabetes mellitus with diabetic polyneuropathy; Q60.0 Renal agenesis, unilateral; E78.5 Hyperlipidemia, unspecified; Z95.1 Presence of aortocoronary bypass graft; Z88.8 Allergy status to other drugs, medicaments and biological substances; Z79.899 Other long term (current) drug therapy; Z79.82 Long term (current) use of aspirin; Z79.4 Long term (current) use of insulin
CPT/HCPCS: 33249; 71045; 71046; 76937; 82947; 96374; 96376; 99152; 99153; A9270-GY; C1721; C1895; C1898; G0378; J0690; J1644; J2250; J3010; J7030; J7040

== ENCOUNTER 2019-03-12 14:38 | Emergency (ER) | payer MEDICARE ==
[~2019-03-12] VITALS: Ht 180.3 cm; Wt 108.9 kg
== END 2019-03-12 16:52 | disposition home or self-care (01) ==
LOC: ER 14:38
DX: Z45.010 Encounter for checking and testing of cardiac pacemaker pulse generator [battery] (principal); E11.22 Type 2 diabetes mellitus with diabetic chronic kidney disease; N18.3 Chronic kidney disease, stage 3 (moderate); Z88.8 Allergy status to other drugs, medicaments and biological substances; Z79.899 Other long term (current) drug therapy; W19.XXXA Unspecified fall, initial encounter
CPT/HCPCS: 71046; 93005; 93010; 99283-25

== ENCOUNTER 2019-04-21 02:49 | Inpatient (IN) | payer MEDICARE ==
[~2019-04-21] VITALS: Ht 180.3 cm; Wt 112.9 kg
[2019-04-21 03:01] LABS: BASOPHILS ABSOLUTE AUTO 0.03 K/mm3 (0.00-0.23); BASOPHILS PERCENT AUTO 0 % (0-2); EOSINOPHILS ABSOLUTE AUTO 0.14 K/mm3 (0.00-0.68); EOSINOPHILS PERCENT AUTO 2 % (0-6); Hematocrit 30.2 % (37.0-53.0); Hemoglobin 9.8 g/dL (13.5-17.5); IMMATURE GRAN ABSOLUTE AUTO 0.02 K/mm3 (0.00-0.10); IMMATURE GRAN PERCENT AUTO 0 % (0-1); LYMPHOCYTES PERCENT AUTO 3 % (21-46); MONOCYTES ABSOLUTE AUTO 0.91 K/mm3 (0.16-1.47); MONOCYTES PERCENT AUTO 10 % (4-13); Mean Corpuscular HGB Conc 32.5 g/dL (31.5-36.5); Mean Corpuscular Volume 92 fL (80-100); Mean Platelet Volume 10.3 fL (9.1-12.4); NEUTROPHILS ABSOLUTE AUTO 8.08 K/mm3 (1.96-9.15); NEUTROPHILS PERCENT AUTO 85 % (41-73); Platelet Count 157 K/mm3 (150-400); RDW Coefficient Variation 13.2 % (11.7-14.2); RDW Standard Deviation 44.4 fL (35.1-46.3); Red Blood Cell Count 3.27 M/mm3 (4.30-5.90); White Blood Cell Count 9.48 K/mm3 (4.00-11.30)
[2019-04-21 03:19] LABS: Albumin, Blood 2.9 g/dL (3.4-5.0); Albumin/Globulin Ratio 0.9 (0.8-1.8); Bilirubin, Total 1.2 mg/dL (0.1-1.0); Bun/Creatinine Ratio 15.3 (12.0-20.0); Creatinine, Blood 2.55 mg/dL (0.60-1.20); Globulin, Blood 3.2 g/dL (2.2-4.0); Potassium, Blood 4.3 mmol/L (3.5-5.5); Total Protein, Blood 6.1 g/dL (6.4-8.2); Troponin I 0.169 ng/mL (0.000-0.040)
--- NOTE | 2019-04-21 07:13 | NUR ---
63 YR OLD MALE ADMITTED TO FLOOR FROM THE ED WITH CHF EXACERBATION, SHORTNESS OF BREATH AND HAVING NOT EATEN FOR 2 DAYS DUE TO NOT BEING ABLE TO LEAVE HIS HOME DUE TO SOB. ALERT AND ORIENTED. ORIENTED TO ROOM AND CALL LIGHT. O2 PER NC. CBG 117.
[2019-04-21 08:49] LABS: Bun/Creatinine Ratio 16.3 (12.0-20.0); Calcium, Blood 8.1 mg/dL (8.5-10.1); Creatinine, Blood 2.58 mg/dL (0.60-1.20); Potassium, Blood 4.1 mmol/L (3.5-5.5)
--- NOTE | 2019-04-21 16:38 | NUR ---
SHIFT SUMMARY- PT IS A/O COOPERATIVE, AND PLESANT. PT DENIES CHEST PAIN THIS SHIFT. DID EXPERIENCE SOME SOB AFTER LYING DOWN, BUT SATS REMAINED STABLE AT 98% ON RA. PT EATING WELL, DIURESING WELL. INDEPENDANT IN ROOM. NO PT AT THIS TIME PER . NOTED SOB WITH EXERTION.
--- NOTE | 2019-04-22 04:44 | NUR ---
EARLY IN THE SHIFT PT COMPLAINED OF DYSPNEA, RT VISITED AND ASSISTED WITH DISTRESS. SLEPT MOST OF SHIFT, THEN AWAKENED A FEW MINUTES AGO, VOICED DRY MOUTH, REQUESTED AND RECEIVED CUP OF COFFEE. VOIDING QS - SEE I AND O DOCS. O2 PER NC AT 2L/MIN. CALL LIGHT IN REACH.
[2019-04-22 05:07] LABS: BASOPHILS ABSOLUTE AUTO 0.04 K/mm3 (0.00-0.23); BASOPHILS PERCENT AUTO 1 % (0-2); EOSINOPHILS ABSOLUTE AUTO 0.47 K/mm3 (0.00-0.68); EOSINOPHILS PERCENT AUTO 8 % (0-6); Hematocrit 30.1 % (37.0-53.0); Hemoglobin 9.4 g/dL (13.5-17.5); IMMATURE GRAN ABSOLUTE AUTO 0.02 K/mm3 (0.00-0.10); IMMATURE GRAN PERCENT AUTO 0 % (0-1); LYMPHOCYTES ABSOLUTE AUTO 0.42 K/mm3 (0.84-5.20); LYMPHOCYTES PERCENT AUTO 7 % (21-46); MONOCYTES ABSOLUTE AUTO 1.09 K/mm3 (0.16-1.47); MONOCYTES PERCENT AUTO 19 % (4-13); Mean Corpuscular HGB 29.2 pg (26.0-34.0); Mean Corpuscular HGB Conc 31.2 g/dL (31.5-36.5); Mean Corpuscular Volume 94 fL (80-100); Mean Platelet Volume 10.6 fL (9.1-12.4); NEUTROPHILS ABSOLUTE AUTO 3.76 K/mm3 (1.96-9.15); NEUTROPHILS PERCENT AUTO 65 % (41-73); Platelet Count 161 K/mm3 (150-400); RDW Standard Deviation 44.5 fL (35.1-46.3); Red Blood Cell Count 3.22 M/mm3 (4.30-5.90)
[2019-04-22 05:36] LABS: Bun/Creatinine Ratio 16.4 (12.0-20.0); Calcium, Blood 8.1 mg/dL (8.5-10.1); Creatinine, Blood 3.29 mg/dL (0.60-1.20); Potassium, Blood 4.6 mmol/L (3.5-5.5)
--- NOTE | 2019-04-22 17:32 | NUR ---
PT SLEEPING MOST OF DAY. STATES DOES NOT THINK TAKE LYRICA IN AM. CALLED DR LUND, HE FEELS MORE LIKELY IS SLEEP APNEA. ORDERS FOR CONT BIOX. DONE. PT VSS STABLE, LIGHT BACK PAIN, NO MEDS REQUESTED. AGAIN, SLEEPING MOST OF DAY. SLOW TO AWAKEN. NO OTHER CONCERNS AT THIS TIME. BED IN LOW POSITOIN, CALL LITE IN REACH. BED ALARM ON FOR SAFETY
[2019-04-23 04:35] LABS: BASOPHILS ABSOLUTE AUTO 0.02 K/mm3 (0.00-0.23); BASOPHILS PERCENT AUTO 0 % (0-2); EOSINOPHILS ABSOLUTE AUTO 0.44 K/mm3 (0.00-0.68); EOSINOPHILS PERCENT AUTO 9 % (0-6); Hematocrit 29.9 % (37.0-53.0); Hemoglobin 9.2 g/dL (13.5-17.5); IMMATURE GRAN ABSOLUTE AUTO 0.01 K/mm3 (0.00-0.10); IMMATURE GRAN PERCENT AUTO 0 % (0-1); LYMPHOCYTES ABSOLUTE AUTO 0.55 K/mm3 (0.84-5.20); LYMPHOCYTES PERCENT AUTO 11 % (21-46); MONOCYTES PERCENT AUTO 19 % (4-13); Mean Corpuscular HGB 28.9 pg (26.0-34.0); Mean Corpuscular HGB Conc 30.8 g/dL (31.5-36.5); Mean Corpuscular Volume 94 fL (80-100); NEUTROPHILS ABSOLUTE AUTO 2.94 K/mm3 (1.96-9.15); NEUTROPHILS PERCENT AUTO 61 % (41-73); Platelet Count 143 K/mm3 (150-400); RDW Coefficient Variation 12.7 % (11.7-14.2); Red Blood Cell Count 3.18 M/mm3 (4.30-5.90); White Blood Cell Count 4.86 K/mm3 (4.00-11.30)
[2019-04-23 05:01] LABS: Calcium, Blood 7.8 mg/dL (8.5-10.1); Creatinine, Blood 3.38 mg/dL (0.60-1.20); Potassium, Blood 4.7 mmol/L (3.5-5.5)
--- NOTE | 2019-04-23 05:59 | NUR ---
SHIFT SUMMARY NO ACUTE CHANGES OVERNIGHT. PT IS A&OX4, 1 PER ASSIST. BED ALARM ON FOR SAFETY, PT WEAK/UNSTEADY GAIT. TELE IN PLACE; NSR @ 61 BPM. LS c FINE CRACKLES IN BASES, CURRENTLY ON 2L VIA NC. CBG 126 TONIGHT, PM LANTUS HELD. DENIES PAIN. WILL CONT TO MONITOR AND PROVIDE CARE UNTIL PRESUMED BY ONCOMING RN.
--- NOTE | 2019-04-23 08:30 | NUR ---
PT PLEASANT COOP A/O AWAKE THIS AM. STATES LIGHT PAIN IN BACK. QUITE TOLERABLE. REQUEST NO MEDS. H/R REG, NO MURMER NOTED. PER TELE NSR AT 68. ADMITS TO DEFIBRILLATOR. LUNGS WHEEZY T.O. RESP EASY, UNLBORED. ON 2L O2. BT X4 LAST BM 2 DAYS. VOIDS URINAL AND 1 ASST TO BATHROOM. BED IN LOW POSITOIN, CALL LITE IN REACH, BED ALARM ON FOR SAFETY
--- NOTE | 2019-04-23 09:57 | NUR ---
SPOLE TO DR CHEYENNE ROCK BP MEDS, LYRICA AND PT SLEEPING MOST OF DAY, LOW KIDNEY FCTN AND LASIX. MAKING ORDER CHANGES. WILL PLACE PARAMETERS FOR B/P. HOLD ALL THIS AM. AND LASIX. PEND ORDERS.
--- NOTE | 2019-04-23 17:58 | NUR ---
PT MUCH MORE AWAKE TODAY. DID WORK WITH PT. WALKED TO NURSE STATION AND THEN TO BEGINNING OF LOBBY. RESTED THEN RETURNED PER P/T. REQUESTED [place] TODAY. GIVEN. NO OTHER CONCERNS AT THIS TIME. BED IN LOW POSITION, CALL LITE IN REACH, CALLS APPROP
[2019-04-24 04:48] LABS: Bun/Creatinine Ratio 19.9 (12.0-20.0); Calcium, Blood 7.5 mg/dL (8.5-10.1); Creatinine, Blood 3.42 mg/dL (0.60-1.20); Magnesium, Blood 2.4 mg/dL (1.6-2.4); Potassium, Blood 5.6 mmol/L (3.5-5.5)
--- NOTE | 2019-04-24 05:28 | NUR ---
PT RADHIKAUES TO HAVE DYSPNEA UPON EXERTION. HES VERY COARSE AND WHEEZY THROUGH OUT HIS LOBES. HE RECEIVED BREATHING TREATMENTS PER ORDER.ANF RT WAS CALL FOR HIM ONCE BUT HIS SATURATION LEVELS WERE GOOD, HE DID HAVE CONSTRICTION OCCURING. HES USING HIS FUTTER VALVE APPROPRIATELY. DENIES PAIN THIS SHIFT. BED LOW AND LOCKED. FOR SAFETY ASKED PATIENT TO CALL FOR SBA TO BRP. BED LOW AND LOCKED AND CALL FELICIA LYNN.
[2019-04-24 16:38] LABS: Albumin, Blood 2.9 g/dL (3.4-5.0); Anion Gap 3 mmol/L (6-16); Blood Urea Nitrogen 75 mg/dL (8-24); Bun/Creatinine Ratio 22.1 (12.0-20.0); CO2, Blood 25 mmol/L (21-32); Chloride, Blood 110 mmol/L (98-108); Glomerular Filtration Rate 19 (60-); Glucose, Blood 134 mg/dL (70-99); Potassium, Blood 5.6 mmol/L (3.5-5.5); Sodium, Blood 138 mmol/L (136-145)
--- NOTE | 2019-04-24 16:50 | NUR ---
ALERT. ORIENTED. COOPERATIVE. PLEASANT. AWARE STRICT I&I AND IF EMPTIES URINAL WILL RECORD ON BOARD. WILL ALSO RECORD INTAKE IF DRINKS SOMETHING WE ARE UNAWARE OF. DENIES PAIN. AMBULATORY W/P.T. W/WALKER AND GAIT BELT IN HALLWAY. INDEPENDENT IN ROOM. TELE ON. [facility] [place]
[2019-04-25 05:13] LABS: BASOPHILS ABSOLUTE AUTO 0.02 K/mm3 (0.00-0.23); BASOPHILS PERCENT AUTO 0 % (0-2); EOSINOPHILS ABSOLUTE AUTO 0.38 K/mm3 (0.00-0.68); EOSINOPHILS PERCENT AUTO 7 % (0-6); Hematocrit 27.2 % (37.0-53.0); Hemoglobin 8.5 g/dL (13.5-17.5); IMMATURE GRAN ABSOLUTE AUTO 0.01 K/mm3 (0.00-0.10); IMMATURE GRAN PERCENT AUTO 0 % (0-1); LYMPHOCYTES ABSOLUTE AUTO 0.82 K/mm3 (0.84-5.20); LYMPHOCYTES PERCENT AUTO 14 % (21-46); MONOCYTES ABSOLUTE AUTO 0.75 K/mm3 (0.16-1.47); MONOCYTES PERCENT AUTO 13 % (4-13); Mean Corpuscular HGB 28.5 pg (26.0-34.0); Mean Corpuscular HGB Conc 31.3 g/dL (31.5-36.5); Mean Corpuscular Volume 91 fL (80-100); Mean Platelet Volume 10.8 fL (9.1-12.4); NEUTROPHILS ABSOLUTE AUTO 3.78 K/mm3 (1.96-9.15); NEUTROPHILS PERCENT AUTO 66 % (41-73); Platelet Count 149 K/mm3 (150-400); RDW Coefficient Variation 12.4 % (11.7-14.2); RDW Standard Deviation 41.3 fL (35.1-46.3); Red Blood Cell Count 2.98 M/mm3 (4.30-5.90); White Blood Cell Count 5.76 K/mm3 (4.00-11.30)
[2019-04-25 05:38] LABS: Albumin, Blood 2.7 g/dL (3.4-5.0); Albumin/Globulin Ratio 0.8 (0.8-1.8); Bilirubin, Total 0.5 mg/dL (0.1-1.0); Bun/Creatinine Ratio 22.2 (12.0-20.0); Calcium, Blood 8.4 mg/dL (8.5-10.1); Creatinine, Blood 3.24 mg/dL (0.60-1.20); Globulin, Blood 3.2 g/dL (2.2-4.0); Phosphorus, Blood 4.3 mg/dL (2.5-4.9); Potassium, Blood 4.9 mmol/L (3.5-5.5); Total Protein, Blood 5.9 g/dL (6.4-8.2)
--- NOTE | 2019-04-25 07:54 | NUR ---
patient is irritable. patient complained of a headache this morning. added moisture to o2, gave tylenol. patient refused to be reassessed for pain.
[2019-04-25 08:44] LABS: Percent Saturation 10.7 % (20.0-50.0)
--- NOTE | 2019-04-25 17:41 | NUR ---
NO ACUTE CHANGES TO PATIENT THIS SHIFT. HE HAS BEEN PLEASANT THOUGH WITHDRAWN THIS SHIFT. HE IS INDEPENDENT IN HIS ROOM AND CALLS APPROPRIATLEY. HE HAS HAD NO PAIN OR NV . PALLIATIVE CARE IN WITH PATIENT THIS SHIFT. CALL LIGHT CLOSE
--- NOTE | 2019-04-25 18:18 | NUR ---
Initial Visit: Palliative Care Consult for Advanced Care Planning. Pt is A&O and denies pain at this time. Pt denies anxiety and nausea. He also denies SOB at this time. Engaged in therapeutic discussion regarding advanced care planning. Pt reports living alone and has no family for support. He reports plan to move from his upstairs apartment to down stairs. Educated Pt on disease process of CHF and CKD including trajectory. Educated on the importance of routine discussions with PCP and specialist on disease in order to plan accordingly. Pt states he is not ready to give up yet and has a bucket list he wants to pursue. Educated on the importance of complying with recommendations. Discussed AD/POLST and educated on life sustaining measures including risk factors. Handed Pt an AD and a POLST for consideration. Suggested the importance of hiring a caregiver to help with care needs. Suggested a medication organizer and for caregiver to fill routinely to aide in his inability to read the medication bottles. Pt reports no other concerns at this time. Spoke with bedside nurse aLney and discussed case. Palliative Care will remain available.
[2019-04-26 04:52] LABS: BASOPHILS ABSOLUTE AUTO 0.03 K/mm3 (0.00-0.23); BASOPHILS PERCENT AUTO 1 % (0-2); EOSINOPHILS ABSOLUTE AUTO 0.37 K/mm3 (0.00-0.68); EOSINOPHILS PERCENT AUTO 7 % (0-6); Hematocrit 27.9 % (37.0-53.0); Hemoglobin 8.9 g/dL (13.5-17.5); IMMATURE GRAN ABSOLUTE AUTO 0.01 K/mm3 (0.00-0.10); IMMATURE GRAN PERCENT AUTO 0 % (0-1); LYMPHOCYTES PERCENT AUTO 16 % (21-46); MONOCYTES ABSOLUTE AUTO 0.67 K/mm3 (0.16-1.47); MONOCYTES PERCENT AUTO 13 % (4-13); Mean Corpuscular HGB 28.3 pg (26.0-34.0); Mean Corpuscular HGB Conc 31.9 g/dL (31.5-36.5); Mean Corpuscular Volume 89 fL (80-100); Mean Platelet Volume 10.8 fL (9.1-12.4); NEUTROPHILS ABSOLUTE AUTO 3.27 K/mm3 (1.96-9.15); NEUTROPHILS PERCENT AUTO 64 % (41-73); Platelet Count 171 K/mm3 (150-400); RDW Coefficient Variation 12.3 % (11.7-14.2); RDW Standard Deviation 39.9 fL (35.1-46.3); Red Blood Cell Count 3.14 M/mm3 (4.30-5.90); White Blood Cell Count 5.15 K/mm3 (4.00-11.30)
[2019-04-26 05:08] LABS: Bun/Creatinine Ratio 22.7 (12.0-20.0); Calcium, Blood 8.5 mg/dL (8.5-10.1); Creatinine, Blood 3.13 mg/dL (0.60-1.20); Magnesium, Blood 2.4 mg/dL (1.6-2.4); Potassium, Blood 4.8 mmol/L (3.5-5.5)
--- NOTE | 2019-04-26 05:28 | NUR ---
SHIFT SUMMARY NO ACUTE EVENTS OVERNIGHT. PT IS FLAT, WITHDRAWN. A&OX4, INDEPENDENT IN RM. DENIES PAIN. CRACKLES IN BILAT BASES. ON 2L VIA NC PRN, TAKES OFF O2 AT TIMES AND O2 SATS REMAIN >90%. STRICT I/O'S. TELE IN PLACE; NSR @ 66 BPM PER PORT PATROL OFFICER. WILL CONT TO MONITOR AND PROVIDE CARE UNTIL PRESUMED BY ONCOMING RN.
[2019-04-26] MEDS ORDERED: FERSU300 PO (12:36)
[2019-04-26] MEDS ORDERED: FURO40 PO (12:37)
[2019-04-26] MEDS ORDERED: Vitamin D2000 UNIT PO (12:41)
--- NOTE | 2019-04-26 13:44 | NUR ---
DISCHARGE DISCHARGE MEDICATIONS AND INSTRUCTIONS EXPLAINED TO PATIENT. PATIENT STATED UNDERSTANDING. PCP'S OFFICE WILL CALL PATIENT AT HOME WITH APPOINTMENT, FOLLOW UP WITH CARDIAC AND NEPHROLOGY SCHEDULED. IV REMOVED WITHOUT DIFFICULTY. BELONGINGS WITH PATIENT. PATIENT TRANSFERED TO [facility] VIA WHEELCHAIR.
[2019-04-27 15:07] LABS: A/G RATIO 1.2 (0.7-1.7); ALBUMIN 2.8 g/dL (2.9-4.4); ALPHA-1-GLOBULIN 0.2 g/dL (0.0-0.4); ALPHA-2-GLOBULIN 0.9 g/dL (0.4-1.0); BETA GLOBULIN 0.8 g/dL (0.7-1.3); GAMMA GLOBULIN 0.5 g/dL (0.4-1.8); GLOBULIN, TOTAL 2.5 g/dL (2.2-3.9); IMMUNOGLOBULIN A, QN, SERUM 208 mg/dL (61-437); IMMUNOGLOBULIN G, QN, SERUM 573 mg/dL (700-1600); IMMUNOGLOBULIN M, QN, SERUM 70 mg/dL (20-172); M-SPIKE Not Observed g/dL (Not Observed); PROTEIN, TOTAL, SERUM 5.3 g/dL (6.0-8.5)
== END 2019-04-26 13:30 | disposition home or self-care (01) | DRG 291 ==
LOC: ER 02:49 → MEDS 05:46 → ENPENDDIS 04-26 10:37 → MEDS 04-26 13:30
PROVIDERS: Emergency Medicine; Internal Medicine; ADMIT Hospitalist
DX: I13.0 Hypertensive heart and chronic kidney disease with heart failure and stage 1 through stage 4 chronic kidney disease, or unspecified chronic kidney disease (principal); J96.01 Acute respiratory failure with hypoxia; I50.23 Acute on chronic systolic (congestive) heart failure; N17.9 Acute kidney failure, unspecified; N18.4 Chronic kidney disease, stage 4 (severe); Q60.3 Renal hypoplasia, unilateral; E11.40 Type 2 diabetes mellitus with diabetic neuropathy, unspecified; E11.22 Type 2 diabetes mellitus with diabetic chronic kidney disease; N40.0 Benign prostatic hyperplasia without lower urinary tract symptoms; I25.5 Ischemic cardiomyopathy; E78.5 Hyperlipidemia, unspecified; E11.319 Type 2 diabetes mellitus with unspecified diabetic retinopathy without macular edema; D63.1 Anemia in chronic kidney disease; E87.5 Hyperkalemia; I25.10 Atherosclerotic heart disease of native coronary artery without angina pectoris; E66.9 Obesity, unspecified; Z95.1 Presence of aortocoronary bypass graft; Z91.14 Patient's other noncompliance with medication regimen; Z95.810 Presence of automatic (implantable) cardiac defibrillator; Z79.82 Long term (current) use of aspirin; Z79.4 Long term (current) use of insulin; Z79.899 Other long term (current) drug therapy
CPT/HCPCS: 36415; 71045; 80048; 80053; 80069; 82607; 82728; 82746; 82784; 82947; 83540; 83550; 83735; 83880; 84100; 84165; 84484; 85025; 86334; 90686; 93005; 93010; 94640; 94667; 94760; 94762; 96374; 97110; 97116; 97162; 97165; 97530; 99285-25; A9270; J0881; J1644; J1940

== ENCOUNTER 2019-05-13 13:37 | Inpatient (IN) | payer MEDICARE ==
[~2019-05-13] VITALS: Ht 180.3 cm; Wt 110.5 kg
[~2019-05-13 13:37] MED LIST changes: +FERSU300 PO; +TOUJEO SOL300 UNIT/1 SC; -TOUJEO SOL300 UNIT/1 SQ
[2019-05-13] MEDS ORDERED: LOSARTAN POTASS25 M2 PO (14:03)
[2019-05-13] MEDS ORDERED: Isosorbide Mono60 MG PO (14:04)
[2019-05-13] MEDS ORDERED: HYDR10 PO (14:04)
[2019-05-13 14:15] LABS: BASOPHILS ABSOLUTE AUTO 0.04 K/mm3 (0.00-0.23); BASOPHILS PERCENT AUTO 1 % (0-2); EOSINOPHILS ABSOLUTE AUTO 0.32 K/mm3 (0.00-0.68); EOSINOPHILS PERCENT AUTO 5 % (0-6); Hematocrit 32.5 % (37.0-53.0); Hemoglobin 10.4 g/dL (13.5-17.5); IMMATURE GRAN ABSOLUTE AUTO 0.02 K/mm3 (0.00-0.10); IMMATURE GRAN PERCENT AUTO 0 % (0-1); LYMPHOCYTES ABSOLUTE AUTO 0.73 K/mm3 (0.84-5.20); LYMPHOCYTES PERCENT AUTO 12 % (21-46); MONOCYTES ABSOLUTE AUTO 0.68 K/mm3 (0.16-1.47); MONOCYTES PERCENT AUTO 11 % (4-13); Mean Corpuscular HGB 29.1 pg (26.0-34.0); Mean Corpuscular Volume 91 fL (80-100); Mean Platelet Volume 10.6 fL (9.1-12.4); NEUTROPHILS ABSOLUTE AUTO 4.57 K/mm3 (1.96-9.15); NEUTROPHILS PERCENT AUTO 72 % (41-73); Platelet Count 200 K/mm3 (150-400); RDW Coefficient Variation 12.9 % (11.7-14.2); RDW Standard Deviation 42.5 fL (35.1-46.3); Red Blood Cell Count 3.58 M/mm3 (4.30-5.90); White Blood Cell Count 6.36 K/mm3 (4.00-11.30)
[2019-05-13 14:39] LABS: Albumin, Blood 3.1 g/dL (3.4-5.0); Albumin/Globulin Ratio 0.9 (0.8-1.8); Bilirubin, Total 0.6 mg/dL (0.1-1.0); Bun/Creatinine Ratio 18.3 (12.0-20.0); Calcium, Blood 9.5 mg/dL (8.5-10.1); Creatinine, Blood 2.3 mg/dL (0.60-1.20); Globulin, Blood 3.4 g/dL (2.2-4.0); Total Protein, Blood 6.5 g/dL (6.4-8.2)
[2019-05-13 14:55] LABS: Troponin I 0.715 ng/mL (0.000-0.040)
--- NOTE | 2019-05-13 18:42 | NUR ---
SHIFT NOTE PT ARRIVED FROM ER WITH DX OF ACUTE ON CHRONIC HEART FIALURE. PT REPORTS HX IF ICD PLAEMENT X4 MONTHS AGO, CABG X2, AND STENT PLACEMENT. PT DENIES CP AND SOB. NOTED TO HAVE AN INTERMITTENT SHIVERING NOTED PT STS "I DON'T KNOW WHAT IS WORNG" SHIVERING IS INTERMITTENT, OFFERED TO COVER PT BUT REFUSED. PT IS A/O X4 ANSWERING QUESTIONS APPROPRIATELY IN FULL SENTENCES. LS COARSE T/O WITH DECREASE IN BASES BILAT. PT HAS RECENTLY MOVED INTO A NEW HOUSE STS THAT HE HAS NOT TAKEN HIS HOME X1 WEEK HE HAS BEEN TOO BUSY.
--- NOTE | 2019-05-13 21:32 | NUR ---
ASSUMED CARE OF PATIENT AT APPROXIMATELY 1900 FROM ANNEL Frias RN. PATIENT ALERT AND ORIENTED X4; FLAT. PATIENT DENIES CP/PRESSURE, PAIN, NUMBNESS, TINGLING, DIZZINESS AND NAUSEA; PATIENT REPORTS "I'M JUST COLD"; WARM BLANKETS GIVEN. NSR ON TELE; OXYGEN SATURATION ABOVE 90% ON ROOM AIR. VOIDING INTO URINAL BEDSIDE; PIV S/L. PATIENT CURRENTLY RESTING IN BED; CALL LIGHT IN REACH; BED IN LOWEST POSISTION; BED ALARM ON; WILL CONTINUE TO MONITOR AND ASSESS UNTIL END OF SHIFT.
[2019-05-14 04:16] LABS: BASOPHILS ABSOLUTE AUTO 0.03 K/mm3 (0.00-0.23); BASOPHILS PERCENT AUTO 1 % (0-2); EOSINOPHILS ABSOLUTE AUTO 0.26 K/mm3 (0.00-0.68); EOSINOPHILS PERCENT AUTO 5 % (0-6); Hematocrit 29.7 % (37.0-53.0); Hemoglobin 9.4 g/dL (13.5-17.5); IMMATURE GRAN ABSOLUTE AUTO 0.01 K/mm3 (0.00-0.10); IMMATURE GRAN PERCENT AUTO 0 % (0-1); LYMPHOCYTES PERCENT AUTO 14 % (21-46); MONOCYTES ABSOLUTE AUTO 0.65 K/mm3 (0.16-1.47); MONOCYTES PERCENT AUTO 12 % (4-13); Mean Corpuscular HGB 28.7 pg (26.0-34.0); Mean Corpuscular HGB Conc 31.6 g/dL (31.5-36.5); Mean Corpuscular Volume 91 fL (80-100); Mean Platelet Volume 10.6 fL (9.1-12.4); NEUTROPHILS PERCENT AUTO 69 % (41-73); Platelet Count 191 K/mm3 (150-400); RDW Standard Deviation 42.7 fL (35.1-46.3); Red Blood Cell Count 3.27 M/mm3 (4.30-5.90); White Blood Cell Count 5.55 K/mm3 (4.00-11.30)
[2019-05-14 04:36] LABS: Bun/Creatinine Ratio 16.5 (12.0-20.0); Calcium, Blood 8.8 mg/dL (8.5-10.1); Creatinine, Blood 2.54 mg/dL (0.60-1.20); Free Thyroxine 1.11 ng/dL (0.70-1.60); Potassium, Blood 4.5 mmol/L (3.5-5.5)
[2019-05-14 04:39] LABS: Triiodothyronine, Free 2.36 pg/mL (2.18-3.98)
--- NOTE | 2019-05-14 06:23 | NUR ---
NO ACUTE CHANGES TO REPORT. VSS. PATIENT SLEPT ABOUT NINE HOURS. WILL CONTINUE TO MONITOR AND ASSESS UNTIL END OF SHIFT.
--- NOTE | 2019-05-14 10:48 | NUR ---
AWAITING MEDS FROM PHARMACY
[2019-05-15 04:21] LABS: BASOPHILS ABSOLUTE AUTO 0.07 K/mm3 (0.00-0.23); BASOPHILS PERCENT AUTO 1 % (0-2); EOSINOPHILS ABSOLUTE AUTO 0.35 K/mm3 (0.00-0.68); EOSINOPHILS PERCENT AUTO 6 % (0-6); Hematocrit 30.1 % (37.0-53.0); Hemoglobin 9.5 g/dL (13.5-17.5); IMMATURE GRAN ABSOLUTE AUTO 0.02 K/mm3 (0.00-0.10); IMMATURE GRAN PERCENT AUTO 0 % (0-1); LYMPHOCYTES ABSOLUTE AUTO 0.98 K/mm3 (0.84-5.20); LYMPHOCYTES PERCENT AUTO 17 % (21-46); MONOCYTES ABSOLUTE AUTO 1.03 K/mm3 (0.16-1.47); MONOCYTES PERCENT AUTO 18 % (4-13); Mean Corpuscular HGB 28.2 pg (26.0-34.0); Mean Corpuscular HGB Conc 31.6 g/dL (31.5-36.5); Mean Corpuscular Volume 89 fL (80-100); Mean Platelet Volume 10.7 fL (9.1-12.4); NEUTROPHILS ABSOLUTE AUTO 3.35 K/mm3 (1.96-9.15); NEUTROPHILS PERCENT AUTO 58 % (41-73); Platelet Count 196 K/mm3 (150-400); RDW Coefficient Variation 13.2 % (11.7-14.2); RDW Standard Deviation 42.7 fL (35.1-46.3); Red Blood Cell Count 3.37 M/mm3 (4.30-5.90)
[2019-05-15 04:54] LABS: Bun/Creatinine Ratio 15.7 (12.0-20.0); Calcium, Blood 8.5 mg/dL (8.5-10.1); Creatinine, Blood 2.68 mg/dL (0.60-1.20); Potassium, Blood 4.1 mmol/L (3.5-5.5)
--- NOTE | 2019-05-15 05:12 | NUR ---
SHIFT SUMMARY: PATIENT WITHDRAWN THE MAJORITY OF SHIFT, VSS. PATIENT C/O NOT SEEING A EXPOSURE MACHINE OPERATOR OR BONDING MACHINE OPERATOR THIS ADMISSION AND WILL DISCUSS THIS WITH HOSPITALIST IN THE AM. NO OTHER ISSUES NOTED, MONITORING CLOSELY
[2019-05-15] MEDS ORDERED: FURO20 PO (14:16)
[2019-05-15] MEDS ORDERED: TOUJEO SOL300 UNIT/1 SC (14:18)
[2019-05-15] MEDS ORDERED: INSR10I (14:27)
[2019-05-15] MEDS ORDERED: ENTRESTO 24 MG1 EACH PO (14:30)
[2019-05-15] MEDS ORDERED: SPIR25 PO (14:31)
--- NOTE | 2019-05-15 15:25 | NUR ---
PT D/C AFTER EXTENSIVE TEACHING ABOUT NEW MEDICATIONS, ASSISTED PT TO SET UP WITH RX SAVINGS. PT DENIES FURTHER QUESTIONS ABOUT MEDICATIONS OR ALLERGIES. PT OTD WITH ALL BELONGSINGS
== END 2019-05-15 15:36 | disposition home or self-care (01) | DRG 291 ==
LOC: ER 13:37 → PCU 16:24
PROVIDERS: Physician Assistant; ADMIT Internal Medicine
DX: I13.0 Hypertensive heart and chronic kidney disease with heart failure and stage 1 through stage 4 chronic kidney disease, or unspecified chronic kidney disease (principal); I50.41 Acute combined systolic (congestive) and diastolic (congestive) heart failure; J96.01 Acute respiratory failure with hypoxia; N18.4 Chronic kidney disease, stage 4 (severe); Q60.0 Renal agenesis, unilateral; I25.10 Atherosclerotic heart disease of native coronary artery without angina pectoris; E11.22 Type 2 diabetes mellitus with diabetic chronic kidney disease; E11.43 Type 2 diabetes mellitus with diabetic autonomic (poly)neuropathy; E11.42 Type 2 diabetes mellitus with diabetic polyneuropathy; K31.84 Gastroparesis; E78.5 Hyperlipidemia, unspecified; I16.0 Hypertensive urgency; D50.9 Iron deficiency anemia, unspecified; D63.1 Anemia in chronic kidney disease; G89.29 Other chronic pain; M54.9 Dorsalgia, unspecified; N40.0 Benign prostatic hyperplasia without lower urinary tract symptoms; I25.5 Ischemic cardiomyopathy; E66.9 Obesity, unspecified; Z68.34 Body mass index [BMI] 34.0-34.9, adult; Z91.14 Patient's other noncompliance with medication regimen; Z95.810 Presence of automatic (implantable) cardiac defibrillator
CPT/HCPCS: 36415; 71046; 80048; 80053; 82728; 82947; 83540; 83550; 83880; 84439; 84481; 84484; 85025; 93005; 93010; 96374; 96375; 99284-25; A9270; J0360; J1650; J1815; J1940; J2916

== ENCOUNTER 2019-07-04 13:49 | Observation (INO) | payer MEDICARE ==
[~2019-07-04] VITALS: Ht 180.3 cm; Wt 110.1 kg
[~2019-07-04 13:49] MED LIST changes: +ENTRESTO 24 MG1 EACH PO; +FURO20 PO; +INSR10I; +LOSARTAN POTASS25 M2 PO
[2019-07-04 14:17] LABS: BASOPHILS ABSOLUTE AUTO 0.04 K/mm3 (0.00-0.23); BASOPHILS PERCENT AUTO 1 % (0-2); EOSINOPHILS ABSOLUTE AUTO 0.19 K/mm3 (0.00-0.68); EOSINOPHILS PERCENT AUTO 3 % (0-6); Hematocrit 35.2 % (37.0-53.0); Hemoglobin 11.3 g/dL (13.5-17.5); IMMATURE GRAN ABSOLUTE AUTO 0.01 K/mm3 (0.00-0.10); IMMATURE GRAN PERCENT AUTO 0 % (0-1); LYMPHOCYTES ABSOLUTE AUTO 0.67 K/mm3 (0.84-5.20); LYMPHOCYTES PERCENT AUTO 11 % (21-46); MONOCYTES ABSOLUTE AUTO 0.68 K/mm3 (0.16-1.47); MONOCYTES PERCENT AUTO 12 % (4-13); Mean Corpuscular HGB 28.2 pg (26.0-34.0); Mean Corpuscular HGB Conc 32.1 g/dL (31.5-36.5); Mean Corpuscular Volume 88 fL (80-100); Mean Platelet Volume 10.4 fL (9.1-12.4); NEUTROPHILS ABSOLUTE AUTO 4.29 K/mm3 (1.96-9.15); NEUTROPHILS PERCENT AUTO 73 % (41-73); Platelet Count 154 K/mm3 (150-400); RDW Coefficient Variation 12.4 % (11.7-14.2); RDW Standard Deviation 40.2 fL (35.1-46.3); Red Blood Cell Count 4.01 M/mm3 (4.30-5.90); White Blood Cell Count 5.88 K/mm3 (4.00-11.30)
[2019-07-04 14:44] LABS: Albumin, Blood 3.2 g/dL (3.4-5.0); Albumin/Globulin Ratio 0.9 (0.8-1.8); Bilirubin, Total 0.5 mg/dL (0.1-1.0); Bun/Creatinine Ratio 19.9 (12.0-20.0); Calcium, Blood 8.4 mg/dL (8.5-10.1); Creatinine, Blood 2.46 mg/dL (0.60-1.20); Globulin, Blood 3.4 g/dL (2.2-4.0); Potassium, Blood 5.7 mmol/L (3.5-5.5); Total Protein, Blood 6.6 g/dL (6.4-8.2)
[2019-07-04] MEDS ORDERED: SPIR25 PO (17:48)
[2019-07-04] MEDS ORDERED: Isosorbide Mono60 MG PO (17:49)
[2019-07-04] MEDS ORDERED: FURO20 PO (22:40)
--- NOTE | 2019-07-05 02:50 | NUR ---
CALL TO ANSWERING SERVICE. PT REPORTS RETURN OF NUMBNESS IN R JAW AND R HAND AT 0230. MAINTAINS BASELINE STRENGTH. NEURO CHECKS WNL. VSS. NORMAL SINUS RHYTHM 66. SPOKE WITH DR. GOODMAN. NO NEW ORDERS AT THIS TIME. CONT TO MONITOR PT STATUS.
[2019-07-05 05:12] LABS: BASOPHILS ABSOLUTE AUTO 0.04 K/mm3 (0.00-0.23); BASOPHILS PERCENT AUTO 1 % (0-2); EOSINOPHILS ABSOLUTE AUTO 0.21 K/mm3 (0.00-0.68); EOSINOPHILS PERCENT AUTO 4 % (0-6); Hematocrit 32.6 % (37.0-53.0); Hemoglobin 10.4 g/dL (13.5-17.5); IMMATURE GRAN ABSOLUTE AUTO 0.02 K/mm3 (0.00-0.10); IMMATURE GRAN PERCENT AUTO 0 % (0-1); LYMPHOCYTES PERCENT AUTO 15 % (21-46); MONOCYTES ABSOLUTE AUTO 0.71 K/mm3 (0.16-1.47); MONOCYTES PERCENT AUTO 14 % (4-13); Mean Corpuscular HGB Conc 31.9 g/dL (31.5-36.5); Mean Corpuscular Volume 88 fL (80-100); Mean Platelet Volume 10.5 fL (9.1-12.4); NEUTROPHILS ABSOLUTE AUTO 3.44 K/mm3 (1.96-9.15); NEUTROPHILS PERCENT AUTO 66 % (41-73); Platelet Count 166 K/mm3 (150-400); RDW Coefficient Variation 12.7 % (11.7-14.2); RDW Standard Deviation 40.5 fL (35.1-46.3); Red Blood Cell Count 3.71 M/mm3 (4.30-5.90); White Blood Cell Count 5.22 K/mm3 (4.00-11.30)
[2019-07-05 05:28] LABS: Albumin, Blood 2.8 g/dL (3.4-5.0); Albumin/Globulin Ratio 0.9 (0.8-1.8); Bilirubin, Total 0.5 mg/dL (0.1-1.0); Bun/Creatinine Ratio 19.8 (12.0-20.0); Calcium, Blood 8.1 mg/dL (8.5-10.1); Creatinine, Blood 2.62 mg/dL (0.60-1.20); Globulin, Blood 3.1 g/dL (2.2-4.0); Potassium, Blood 4.8 mmol/L (3.5-5.5); Total Protein, Blood 5.9 g/dL (6.4-8.2)
--- NOTE | 2019-07-05 06:34 | NUR ---
SHIFT SUMMARY: VSS. AFEB. A/OX4. COMMUNICATES NEEDS. DENIES PAIN. NO REPORTS OF CHANGES TO RECURRED EPISODE OF R JAW AND R HAND NUMBNESS. PT RETAINS MUSCLE STRENGTH, BUE SAMPLE PROCESSOR EQUAL, SMILE SYMMETRICAL. NEURO CHECKS WNL. PT IS CURRENTLY SLEEPING. BED LOW, CALL BUTTON IN REACH.
[2019-07-05] MEDS ORDERED: FURO40 PO (11:10)
[2019-07-05] MEDS ORDERED: ATOR20 PO (11:10)
--- NOTE | 2019-07-05 12:52 | NUR ---
SHIFT SUMMARY/DC PT HAS HAD NO ACUTE CHANGES THIS SHIFT, NO COMPLAINTS OF ANY KIND, REVIEWED DC INSTRUCTIONS W/PT WHO VERBALIZED UNDERSTANDING, PT TRANSPORTED VIA WC TO DC IN PRIVATE VEHICLE @ 1210.
== END 2019-07-05 12:44 | disposition home or self-care (01) ==
LOC: ER 13:49 → MEDS 13:50 → ENPENDDIS 07-05 10:44 → MEDS 07-05 12:44
PROVIDERS: Physician Assistant; ADMIT Internal Medicine
DX: R20.2 Paresthesia of skin (principal); I13.0 Hypertensive heart and chronic kidney disease with heart failure and stage 1 through stage 4 chronic kidney disease, or unspecified chronic kidney disease; E11.22 Type 2 diabetes mellitus with diabetic chronic kidney disease; N18.4 Chronic kidney disease, stage 4 (severe); I50.20 Unspecified systolic (congestive) heart failure; E11.42 Type 2 diabetes mellitus with diabetic polyneuropathy; E11.21 Type 2 diabetes mellitus with diabetic nephropathy; I25.10 Atherosclerotic heart disease of native coronary artery without angina pectoris; I25.5 Ischemic cardiomyopathy; Q60.0 Renal agenesis, unilateral; I65.22 Occlusion and stenosis of left carotid artery; E87.5 Hyperkalemia; E11.51 Type 2 diabetes mellitus with diabetic peripheral angiopathy without gangrene; Z95.1 Presence of aortocoronary bypass graft; Z95.810 Presence of automatic (implantable) cardiac defibrillator; Z79.4 Long term (current) use of insulin; Z79.82 Long term (current) use of aspirin; Z79.899 Other long term (current) drug therapy; Z88.8 Allergy status to other drugs, medicaments and biological substances
CPT/HCPCS: 36415; 70450; 80053; 82947; 84132; 85025; 93005; 93010; 96372; 96374; 99285-25; A9270; G0378; J1644; J1815; J1940

== ENCOUNTER 2019-11-11 08:43 | Inpatient (IN) | payer MEDICARE, OTHER ==
[~2019-11-11] VITALS: Ht 180.3 cm; Wt 108.9 kg
[~2019-11-11 08:43] MED LIST changes: +ATOR20 PO; +Isosorbide Mono60 MG PO
[2019-11-11 09:28] LABS: BASOPHILS ABSOLUTE AUTO 0.06 K/mm3 (0.00-0.23); BASOPHILS PERCENT AUTO 1 % (0-2); EOSINOPHILS ABSOLUTE AUTO 0.83 K/mm3 (0.00-0.68); EOSINOPHILS PERCENT AUTO 11 % (0-6); Hematocrit 25.5 % (37.0-53.0); Hemoglobin 7.9 g/dL (13.5-17.5); IMMATURE GRAN ABSOLUTE AUTO 0.03 K/mm3 (0.00-0.10); IMMATURE GRAN PERCENT AUTO 0 % (0-1); LYMPHOCYTES ABSOLUTE AUTO 0.49 K/mm3 (0.84-5.20); LYMPHOCYTES PERCENT AUTO 6 % (21-46); MONOCYTES ABSOLUTE AUTO 0.67 K/mm3 (0.16-1.47); MONOCYTES PERCENT AUTO 9 % (4-13); Mean Corpuscular HGB 28.1 pg (26.0-34.0); Mean Corpuscular Volume 91 fL (80-100); Mean Platelet Volume 11.1 fL (9.1-12.4); NEUTROPHILS ABSOLUTE AUTO 5.82 K/mm3 (1.96-9.15); NEUTROPHILS PERCENT AUTO 74 % (41-73); Platelet Count 178 K/mm3 (150-400); RDW Coefficient Variation 12.9 % (11.7-14.2); RDW Standard Deviation 42.3 fL (35.1-46.3); Red Blood Cell Count 2.81 M/mm3 (4.30-5.90)
[2019-11-11 09:42] LABS: Albumin, Blood 3.1 g/dL (3.4-5.0); Albumin/Globulin Ratio 0.9 (0.8-1.8); Bilirubin, Total 1.2 mg/dL (0.1-1.0); Bun/Creatinine Ratio 20.3 (12.0-20.0); Calcium, Blood 8.1 mg/dL (8.5-10.1); Creatinine, Blood 2.56 mg/dL (0.60-1.20); Globulin, Blood 3.6 g/dL (2.2-4.0); Potassium, Blood 4.8 mmol/L (3.5-5.5); Total Protein, Blood 6.7 g/dL (6.4-8.2); Troponin I 0.036 ng/mL (0.000-0.040)
[2019-11-11] MEDS ORDERED: FUROSEMIDE20 MG PO (11:39)
[2019-11-11] MEDS ORDERED: SPIRONOLACTONE25 MG PO (11:39)
[2019-11-11] MEDS ORDERED: Novolin R100 UNIT/M SC (11:39)
[2019-11-11] MEDS ORDERED: ATORVASTATIN CA20 MG PO (11:40)
[2019-11-11] MEDS ORDERED: CARVEDILOL12.5 MG PO (11:40)
[2019-11-11] MEDS ORDERED: Vitamin D2000 UNIT PO (11:41)
--- NOTE | 2019-11-11 13:13 | NUR ---
PT ADMITTED. PT ADMITTED IN STABLE CONDITION. BP ELEVATED IN THE 160-170S. PT STATED HE DID NOT TAKE MORNING COREG. DR. GRISSOM NOTIFIED. ORDERED TO GIEV MORNING DOSE NOW. AWAITING VERIFICATION. PT ORIENTED TO ROOM. CALL LIGHT IN REACH. WATER & SNACKS PROVIDED. WILL CONTINUE TO MONITOR.
[2019-11-11] MEDS ORDERED: ASPIR 8181 M1 PO (18:09)
--- NOTE | 2019-11-11 18:10 | NUR ---
SHIFT SUMMARY PT IND IN ROOM. AMBULATING TO BATHROOM AND USING URINAL TO VOID. PT USING WARM PACK FOR COMFORT. OT DOSE OF COREG GIVEN. PT BP IMPROVED AT 128/82. OTHER VITALS STABLE. PT DENIES NEEDS AT THIS TIME. WILL CONTINUE TO MONITOR UNTIL TURNOVER IS COMPETE. NO OTHER ACUTE CHANGES IN ASSESSMENT AT THIS TIME.
--- NOTE | 2019-11-12 04:50 | NUR ---
SHIFT SUMMARY AWAKE AT INTERVALS - UP TO BATHROOM, ETC. MED TELE CONTINUES. VOICED CONCERN RE LETHARGIC FEELINGS, EASILY FATIGUED. CHF DISCUSSED. PT VERBALIZED CONCERNS RE LOW BLOOD LEVEL (HGB 7.9 YESTERDAY) BLOOD DRAWN A FEW MINUTES AGO, WILL HAVE AM NURSE F/U WITH MD AND PT RE HIS CONCERNS THIS AM. CALL LIGHT IN REACH
[2019-11-12 05:49] LABS: Bun/Creatinine Ratio 19.1 (12.0-20.0); Calcium, Blood 8.6 mg/dL (8.5-10.1); Creatinine, Blood 2.82 mg/dL (0.60-1.20); Potassium, Blood 4.5 mmol/L (3.5-5.5)
[2019-11-12 09:04] LABS: Percent Saturation 9.1 % (20.0-50.0)
[2019-11-12 10:21] LABS: Hematocrit 25.9 % (37.0-53.0); Hemoglobin 8.2 g/dL (13.5-17.5); Mean Corpuscular HGB 28.7 pg (26.0-34.0); Mean Corpuscular HGB Conc 31.7 g/dL (31.5-36.5); Mean Corpuscular Volume 91 fL (80-100); Mean Platelet Volume 11.3 fL (9.1-12.4); NRBC ABSOLUTE 0.02 K/mm3 (0.00-0.02); NRBC Auto 0.3 /100 WBC (0.0-0.2); Platelet Count 177 K/mm3 (150-400); RDW Standard Deviation 42.5 fL (35.1-46.3); Red Blood Cell Count 2.86 M/mm3 (4.30-5.90); White Blood Cell Count 7.67 K/mm3 (4.00-11.30)
--- NOTE | 2019-11-12 18:12 | NUR ---
PT IS A/OX3, PLEASANT AND COOPERATIVE, THE PT IS UP IND IN HIS ROOM THE PT APPEARS TO BE BREATHING EASILY AT REST ON RA, THE PT REPORTED THAT HE FELT THAT HE WAS BREATHING EASIER TODAY COMPARED TO YESTERDAY, PT WORKED WITH THE PHYSICAL THERAPIST TODAY, CALL LIGHT IN REACH, NO OTHER CHANGES NOTICED THIS SHIFT
--- NOTE | 2019-11-13 05:15 | NUR ---
SHIFT SUMMARY NO ACUTE CHANGES TO REPORT. PT HAS RESTED WELL AND HAS DENIED NEEDS. INDEPENDENT IN THE ROOM. SWELLING REMAINS TO HIS BLE. PT BREATHING IS E/U. TOLERATING RA, SATS WNL. VITALS WNL. ASSESSMENT UNCHANGED. BED IN LOWEST POSITION, CALL LIGHT WITHIN REACH. WILL CONTINUE TO MONITOR AND REPORT TO ONCOMING RN.
[2019-11-13 05:25] LABS: Hematocrit 25.2 % (37.0-53.0); Hemoglobin 7.7 g/dL (13.5-17.5); Mean Corpuscular HGB Conc 30.6 g/dL (31.5-36.5); Mean Corpuscular Volume 92 fL (80-100); Mean Platelet Volume 11.1 fL (9.1-12.4); Platelet Count 170 K/mm3 (150-400); RDW Coefficient Variation 12.9 % (11.7-14.2); RDW Standard Deviation 42.4 fL (35.1-46.3); Red Blood Cell Count 2.75 M/mm3 (4.30-5.90); White Blood Cell Count 6.19 K/mm3 (4.00-11.30)
[2019-11-13 05:50] LABS: Bun/Creatinine Ratio 19.7 (12.0-20.0); Calcium, Blood 8.1 mg/dL (8.5-10.1); Creatinine, Blood 3.09 mg/dL (0.60-1.20); Potassium, Blood 4.4 mmol/L (3.5-5.5)
[2019-11-13] MEDS ORDERED: ATOR20 PO (11:05)
[2019-11-13] MEDS ORDERED: TUMS500 MG PO (11:06)
[2019-11-13] MEDS ORDERED: FERSU300 PO (11:06)
[2019-11-13] MEDS ORDERED: FURO40 PO (11:06)
[2019-11-13] MEDS ORDERED: MIRALAX17 GM PO (11:07)
--- NOTE | 2019-11-13 11:52 | NUR ---
PT DISCHARGED PT VERBALIZED UNDERSTANDING OF THE DC INSTRUCTIONS, THE PTS PRESCRIPTIONS WERE FAXED TO [facility] PER HIS REQUEST, THE PT APPEARED TO BE BREATHING EASILY ON RA AT THE TIME OF DC, THE PT WAS TRANSFERED VIA WHEELCHAIR ACCOMPANIED BY THE SECONDARY MARKET MANAGER, TO CATCH A [facility] HOME
== END 2019-11-13 11:51 | disposition home or self-care (01) | DRG 291 ==
LOC: ER 08:43 → MEDS 11:50
PROVIDERS: Emergency Medicine; ADMIT Internal Medicine
DX: I13.0 Hypertensive heart and chronic kidney disease with heart failure and stage 1 through stage 4 chronic kidney disease, or unspecified chronic kidney disease (principal); J96.01 Acute respiratory failure with hypoxia; I50.23 Acute on chronic systolic (congestive) heart failure; N18.4 Chronic kidney disease, stage 4 (severe); E11.22 Type 2 diabetes mellitus with diabetic chronic kidney disease; D63.1 Anemia in chronic kidney disease; D50.9 Iron deficiency anemia, unspecified; N40.0 Benign prostatic hyperplasia without lower urinary tract symptoms; I25.5 Ischemic cardiomyopathy; I25.10 Atherosclerotic heart disease of native coronary artery without angina pectoris; Z95.1 Presence of aortocoronary bypass graft; Z95.0 Presence of cardiac pacemaker; Z79.4 Long term (current) use of insulin
CPT/HCPCS: 36415; 71045; 80048; 80053; 82728; 82947; 83540; 83550; 83880; 84484; 85025; 85027; 93005; 93010; 96374; 97116; 97162; 99285-25; A9270; J1644; J1815; J1940

== ENCOUNTER 2020-08-20 09:10 | Emergency (ER) | payer MEDICARE ==
[~2020-08-20] VITALS: Ht 180.3 cm; Wt 108.9 kg
[~2020-08-20 09:10] MED LIST changes: +ATORVASTATIN CA20 MG PO; +FUROSEMIDE20 MG PO; +MIRALAX17 GM PO; +Norco 10-325 T1 EACH PO; +SPIRONOLACTONE25 MG PO; +TOUJEO SOL300 UNIT/2 SC; +TUMS500 MG PO; +Valium5 MG PO
[2020-08-20] MEDS ORDERED: Percocet 5-3251 EACH PO (12:43)
== END 2020-08-20 12:59 | disposition home or self-care (01) ==
LOC: ER 09:10
DX: N43.40 Spermatocele of epididymis, unspecified (principal); E11.9 Type 2 diabetes mellitus without complications; I25.810 Atherosclerosis of coronary artery bypass graft(s) without angina pectoris; Z79.4 Long term (current) use of insulin; Z79.82 Long term (current) use of aspirin; Z79.899 Other long term (current) drug therapy; Z95.1 Presence of aortocoronary bypass graft; Z95.5 Presence of coronary angioplasty implant and graft
CPT/HCPCS: 76870; 81000; 99284-25

== ENCOUNTER 2020-08-30 09:42 | Inpatient (IN) | payer MEDICARE ==
[~2020-08-30] VITALS: Ht 180.3 cm; Wt 109.7 kg
[~2020-08-30 09:42] MED LIST changes: +Percocet 5-3251 EACH PO
[2020-08-30 10:58] LABS: BASOPHILS ABSOLUTE AUTO 0.04 K/mm3 (0.00-0.23); BASOPHILS PERCENT AUTO 1 % (0-2); EOSINOPHILS ABSOLUTE AUTO 0.21 K/mm3 (0.00-0.68); EOSINOPHILS PERCENT AUTO 3 % (0-6); Hematocrit 36.7 % (37.0-53.0); Hemoglobin 11.3 g/dL (13.5-17.5); IMMATURE GRAN ABSOLUTE AUTO 0.02 K/mm3 (0.00-0.10); IMMATURE GRAN PERCENT AUTO 0 % (0-1); LYMPHOCYTES ABSOLUTE AUTO 0.46 K/mm3 (0.84-5.20); LYMPHOCYTES PERCENT AUTO 7 % (21-46); MONOCYTES ABSOLUTE AUTO 0.83 K/mm3 (0.16-1.47); MONOCYTES PERCENT AUTO 12 % (4-13); Mean Corpuscular HGB 27.9 pg (26.0-34.0); Mean Corpuscular HGB Conc 30.8 g/dL (31.5-36.5); Mean Corpuscular Volume 91 fL (80-100); Mean Platelet Volume 10.2 fL (9.1-12.4); NEUTROPHILS ABSOLUTE AUTO 5.34 K/mm3 (1.96-9.15); NEUTROPHILS PERCENT AUTO 77 % (41-73); Platelet Count 205 K/mm3 (150-400); RDW Coefficient Variation 14.5 % (11.7-14.2); RDW Standard Deviation 47.9 fL (35.1-46.3); Red Blood Cell Count 4.05 M/mm3 (4.30-5.90)
[2020-08-30 11:04] LABS: Source, Urine Voided
[2020-08-30 11:10] LABS: Appearance, Urine Hazy (Clear); Bilirubin, Urine Neg (Neg); Blood, Urine 5+ (Neg); Color, Urine Yellow (P-Yellow); Glucose Qualitative, Urine 4+ (Neg); Ketones, Urine Neg (Neg); Leukocyte Esterase, Urine 3+ (Neg); Nitrite, Urine Pos (Neg); Protein, Urine 4+ (Neg); Urobilinogen, Urine NORM (Normal)
[2020-08-30 11:23] LABS: Albumin, Blood 2.4 g/dL (3.4-5.0); Albumin/Globulin Ratio 0.6 (0.8-1.8); Bun/Creatinine Ratio 17.3 (12.0-20.0); Calcium, Blood 8.4 mg/dL (8.5-10.1); Creatinine, Blood 3.01 mg/dL (0.60-1.20); Globulin, Blood 4.1 g/dL (2.2-4.0); Potassium, Blood 4.3 mmol/L (3.5-5.5); Total Protein, Blood 6.5 g/dL (6.4-8.2)
[2020-08-30 11:31] LABS: Thyroid Stimulating Hormone 1.88 uIU/mL (0.360-4.800); Troponin I 0.038 ng/mL (0.000-0.040)
[2020-08-30 11:42] LABS: White Blood Cells, Urine 50-100 /hpf (0-5)
[2020-08-30 11:43] LABS: Bacteria Many /hpf; Squamous Epithelial Cells Not Seen /hpf (Few)
[2020-08-30] MEDS ORDERED: FURO40 PO (12:27)
[2020-08-30 12:32] LABS: Influenza A, PCR NEGATIVE (NEGATIVE); Influenza B, PCR NEGATIVE (NEGATIVE); Resp Syncytial Virus, PCR NEGATIVE (NEGATIVE); SARS-Cov-2 (COVID-19) PCR, MMC NEGATIVE (NEGATIVE)
[2020-08-30] MEDS ORDERED: NOVOLIN R100 UNIT/2 SC (13:08)
[2020-08-30] MEDS ORDERED: COREG12.5 M1 PO (13:08)
[2020-08-30] MEDS ORDERED: HUMULIN N100 UNIT/6 SC (13:09)
[2020-08-30] MEDS ORDERED: OXYCODONE-ACET1 EAC3 PO (13:10)
[2020-08-30] MEDS ORDERED: ASPIR 8181 M1 PO (13:16)
[2020-08-30] MEDS ORDERED: Vitamin D2000 UNIT PO (13:16)
--- NOTE | 2020-08-30 18:39 | NUR ---
SHIFT SUMMARY: ASSUMED CARE OF PATIENT AT 1503 UPON HIS ARRIVAL FROM ED. ABLE TO STAND AND TRANSFER FROM [place] TO BED. C/O PAIN IN SEVERELY EDEMATOUS SCROTUM; MEDICATED PER EMAR WITH SOME RELIEF. WAS ABLE TO TAKE A NAP BEFORE DINNER. NO EVENTS ON TELEMETRY, SR 70'S. PODIATRY CONSULT CALLED TO DR. DE. LIVES ALONE IN APARTMENT, HAS NO ONE TO PROVIDE ASSISTANCE IF NEEDED. HAS NOT TAKEN ANY OF HIS REGULAR MEDICATIONS IN ~ 2 WEEKS. DOES NOT CHECK HIS BG AT HOME, LAST A1C > 11. STATED HE WASN'T READY TO RETIRE BUT HIS HEALTH FORCED IT. APPEARS DEPRESSED AND STRESSED LACK OF MOTIVATION AND SUPPORT. USING URINAL INDEPENDENTLY.
[2020-08-31 05:32] LABS: Hematocrit 32.8 % (37.0-53.0); Hemoglobin 9.8 g/dL (13.5-17.5); Mean Corpuscular HGB 27.8 pg (26.0-34.0); Mean Corpuscular HGB Conc 29.9 g/dL (31.5-36.5); Mean Corpuscular Volume 93 fL (80-100); Mean Platelet Volume 10.1 fL (9.1-12.4); Platelet Count 163 K/mm3 (150-400); RDW Coefficient Variation 14.4 % (11.7-14.2); RDW Standard Deviation 48.5 fL (35.1-46.3); Red Blood Cell Count 3.53 M/mm3 (4.30-5.90)
[2020-08-31 05:59] LABS: Albumin, Blood 2.1 g/dL (3.4-5.0); Albumin/Globulin Ratio 0.6 (0.8-1.8); Bilirubin, Total 0.6 mg/dL (0.1-1.0); Bun/Creatinine Ratio 16.6 (12.0-20.0); Calcium, Blood 7.9 mg/dL (8.5-10.1); Creatinine, Blood 3.32 mg/dL (0.60-1.20); Globulin, Blood 3.5 g/dL (2.2-4.0); Magnesium, Blood 2.4 mg/dL (1.6-2.4); Potassium, Blood 4.3 mmol/L (3.5-5.5); Total Protein, Blood 5.6 g/dL (6.4-8.2)
--- NOTE | 2020-08-31 06:33 | NUR ---
SHIFT SUMMARY A/O, ABLE TO MAKE NEEDS KNOWN. COOPERATIVE WITH CARE. NEEDS REINFORCEMENT WITH CALL SYSTEM USAGE; EDUCATED A FEW TIMES. FALL PRECAUTIONS IN PLACE. C/O PAIN/DISCOMFORT TO SCROTUM; MEDICATED PER EMAR. VSS/AFEBRILE. NO C/O SOB DOES EXHIBIT DYSPNEA WITH EXERTION. REMAINS ON 2L VIA NC /c SPO2 >90%. PLAN TO CONTINUE DIURESING /c STRICT I/O's. TELE RUNNING SR IN 60's. NO ACUTE CHANGES NOTED OVERNIGHT. BED IN LOWEST POSITION. CALL LIGHT AND BELONGINS WITHIN REACH. CONTINUE WITH CURRENT PLAN OF CARE. REPORT TO ONCOMING RN.
--- NOTE | 2020-08-31 19:55 | NUR ---
HYPOGLYCEMIA: 0718- PATIENT AWAKE, BUT NOT BEHAVING NORMALLY, SLIGHTLY CONFUSED. CBG 50; GAVE 8 OZ APPLE JUICE AND GOVIND CRACKERS WHICH HE WAS ABLE TO EAT. 0747- RE-CHECKED CBG 52. REPORTED TO Shirin TRUJILLO, RECRUITMENT SPECIALIST; SHE CALLED DR. MICHEL, RECEIVED ORDERED FOR D5NS @ 75, CBG CHECKS [id number] X 6 HOURS, AND D50 IV. HYPOGLYCEMIA PROTOCOL ORDERED. PT WAS DIFFICULT TO AROUSE AT THIS TIME. D50 25 ML GIVEN. 0803- CBG 94. PT SLEEPING ON HIS BACK, APPEARS TO BE HAVING PERIODS OF APNEA WHILE SNORING. BP 103/57, HR 60 PER TELEMETRY, RR 19, O2 SAT 88% ON 2 L/MIN NC WITH SAT DROPPING TO 85% DURING APNEIC PERIODS. INCREASED O2 TO 4 L/MIN NC WITH O2 SAT 91%. D5NS STARTED. 0958- CBG 48; DIFFICULT TO AROUSE. Shirin TRUJILLO RECRUITMENT SPECIALIST NOTIFIED. D50 IV GIVEN AT 1002. 1020- CBG 109; PT AWAKE, REQUESTED SNACK. 1209- CBG 49, LETHARGIC, EATING LUNCH SLOWLY. D50 GIVEN AT 1225. STARTED D5W INFUSION PER DR. MILLER. 1246- RECHECK CBG 115. SLEEPING, AROUSEABLE. 1404- CBG 67; SLEEPING, AROUSEABLE. D50 12.5 ML GIVEN AT 1433. 1551: CBG 95. PATIENT AWAKE, CONVERSANT. SPOKE TO DR. MICHEL BY PHONE, RECEIVED TELEPHONE ORDER TO HOLD SEMGLEE DOSE TONIGHT; PLACED NURSE NOTIFY ORDER.
--- NOTE | 2020-08-31 20:26 | NUR ---
SHIFT SUMMARY: SEE HYPOGLYCEMIA NOTE FOR SHIFT EVENTS. NO EVENTS ON TELEMETRY. SEVERE EDEMA TO SCROTUM AND PENIS. RECEIVED ORDER TO PLACE NELSON FOR RETENTION AND STRICT I&O, BUT PATIENT RESISTANT AND KEPT DEFERRING UNTIL "LATER", KNOWS PLACEMENT WILL BE PAINFUL EVEN WITH USE OF LIDOCAINE. DR. DE ASSESSED PT'S DM ULCER TONIGHT, WROTE ORDERS FOR WOUND CARE, VENOUS U/S COMPLETE. ATE 100% OF LUNCH AND DINNER. APPEARS WITHDRAWN AND DEPRESSED.
[2020-09-01 05:04] LABS: BASOPHILS ABSOLUTE AUTO 0.03 K/mm3 (0.00-0.23); BASOPHILS PERCENT AUTO 1 % (0-2); EOSINOPHILS ABSOLUTE AUTO 0.24 K/mm3 (0.00-0.68); EOSINOPHILS PERCENT AUTO 4 % (0-6); Hematocrit 33.7 % (37.0-53.0); Hemoglobin 10.2 g/dL (13.5-17.5); IMMATURE GRAN ABSOLUTE AUTO 0.02 K/mm3 (0.00-0.10); IMMATURE GRAN PERCENT AUTO 0 % (0-1); LYMPHOCYTES ABSOLUTE AUTO 0.43 K/mm3 (0.84-5.20); LYMPHOCYTES PERCENT AUTO 8 % (21-46); MONOCYTES ABSOLUTE AUTO 0.72 K/mm3 (0.16-1.47); MONOCYTES PERCENT AUTO 13 % (4-13); Mean Corpuscular HGB 28.1 pg (26.0-34.0); Mean Corpuscular HGB Conc 30.3 g/dL (31.5-36.5); Mean Corpuscular Volume 93 fL (80-100); Mean Platelet Volume 10.5 fL (9.1-12.4); NEUTROPHILS ABSOLUTE AUTO 4.06 K/mm3 (1.96-9.15); NEUTROPHILS PERCENT AUTO 74 % (41-73); Platelet Count 162 K/mm3 (150-400); RDW Coefficient Variation 14.5 % (11.7-14.2); RDW Standard Deviation 48.9 fL (35.1-46.3); Red Blood Cell Count 3.63 M/mm3 (4.30-5.90)
--- NOTE | 2020-09-01 05:06 | NUR ---
SHIFT SUMMARY- PT. A&O, COOPERATIVE WITH CARE. NOTED GENERALIZED EDEMA AND SEVERE SCROTAL SWELLING. C/O PAIN/BURNING TO SCROTUM AND GROIN AREA, MEDICATED PER EMAR WITH GOOD EFFECT. PT. VOIDING W/O DIFFICULTY DURING THE NIGHT IN LARGE SUCTION CANISTER DUE TO ENALRGED SROTUM AND SWELLING AROUND PENIS. BLADDER SCAN DONE PVR X2 WITH RESULTS OF 170 & 172. ORDER FROM DAY SHIFT TO INSERT NELSON CATHETER POSTPONED DUE TO SEVERE SWELLING. NOTIFIED HOSPITALIST DR. KUHN, INSTRUCTED TO HOLD OFF ON NELSON CATHETER INSERTION FOR NOW. PERFORMED WOUND CARE TO RT GREAT TOE PER ORDER. SWABBED WITH BETADINE AND COVERED WOUND WITH GAUZE, PT. TOLERATED WELL. PT. SLEPT ON/OFF DURING THE NIGHT, NO APPARENT DISTRESS NOTED. VSS. CALL LIGHT WITHIN REACH AND SIDE RAILS UPX2. WILL CONT TO MONITOR.
[2020-09-01 05:32] LABS: Alanine Aminotransfer (ALT/SGP 27 U/L (12-78); Albumin, Blood 2.1 g/dL (3.4-5.0); Albumin/Globulin Ratio 0.6 (0.8-1.8); Alk Phos 99 U/L (50-136); Anion Gap 7 mmol/L (6-16); Aspartate Aminotrans (AST/SGOT 28 U/L (12-37); Bilirubin, Direct 0.2 mg/dL (0.0-0.3); Bilirubin, Indirect 0.3 mg/dL (0.1-0.7); Bilirubin, Total 0.5 mg/dL (0.1-1.0); Blood Urea Nitrogen 61 mg/dL (8-24); Bun/Creatinine Ratio 17.4 (12.0-20.0); CO2, Blood 25 mmol/L (21-32); Calcium, Blood 7.7 mg/dL (8.5-10.1); Chloride, Blood 110 mmol/L (98-108); Creatinine, Blood 3.51 mg/dL (0.60-1.20); Globulin, Blood 3.7 g/dL (2.2-4.0); Glomerular Filtration Rate 19 (60-); Glucose, Blood 168 mg/dL (70-99); Magnesium, Blood 2.3 mg/dL (1.6-2.4); Phosphorus, Blood 5.7 mg/dL (2.5-4.9); Sodium, Blood 142 mmol/L (136-145); Total Protein, Blood 5.8 g/dL (6.4-8.2); Troponin I 0.097 ng/mL (0.000-0.040)
--- NOTE | 2020-09-01 16:02 | NUR ---
SHIFT SUMMARY PT AOX4; CALLS APPROPRIATELY. PT IS A 1P ASSIST, USES URINAL. PT IS ON 24 HR URINE COLLECTION STARTED AT 0900. BLADDER SCAN PTX2. POSTVOIDAL LESS THAN 200. PT HAS BEEN DIURESING WELL. PT MEDICATED FOR PAINX1. CLEANED AND PLACED DRESSING ON HIS WOUND ON RIGHT GREAT TOE. PT IS ON 1-2L OF ; SATS ABOVE 90S. NO APPARENT DISTRESS. BED IS IN THE LOWEST POSITION AND CALL LIGHT WITHIN REACH
[2020-09-02 04:30] LABS: Hematocrit 34.4 % (37.0-53.0); Hemoglobin 10.4 g/dL (13.5-17.5); Mean Corpuscular HGB 27.6 pg (26.0-34.0); Mean Corpuscular HGB Conc 30.2 g/dL (31.5-36.5); Mean Corpuscular Volume 91 fL (80-100); Mean Platelet Volume 10.5 fL (9.1-12.4); Platelet Count 149 K/mm3 (150-400); RDW Coefficient Variation 14.4 % (11.7-14.2); Red Blood Cell Count 3.77 M/mm3 (4.30-5.90)
[2020-09-02 04:49] LABS: Albumin, Blood 2.5 g/dL (3.4-5.0); Anion Gap 7 mmol/L (6-16); Blood Urea Nitrogen 73 mg/dL (8-24); Bun/Creatinine Ratio 19.2 (12.0-20.0); CO2, Blood 24 mmol/L (21-32); Calcium, Blood 8.1 mg/dL (8.5-10.1); Chloride, Blood 108 mmol/L (98-108); Creatinine, Blood 3.81 mg/dL (0.60-1.20); Glomerular Filtration Rate 17 (60-); Glucose, Blood 205 mg/dL (70-99); Magnesium, Blood 2.4 mg/dL (1.6-2.4); Phosphorus, Blood 5.6 mg/dL (2.5-4.9); Potassium, Blood 5.3 mmol/L (3.5-5.5); Sodium, Blood 139 mmol/L (136-145)
--- NOTE | 2020-09-02 06:30 | NUR ---
SHIFT SUMMARY- PT. PLEASANT AND COOPEATIVE WITH CARE. ON 24HR URINE, VOIDING W/O DIFFCULTY DURING THE NIGHT. PVR BLADDER SCAN DONE PER ORDER WITH RESULT OF 139. PT. APPEARED TO HAVE SLEPT COMFORTABLY T/O THE NIGHT, NO APPARENT DISTRESS NOTED. C/O PAIN TO SCROTUM/GROIN AREA. OFFERED PAIN MEDICATION, PT. DECLINED. BS IN THE 200'S, PT. REFUSED SEMGLEE LONG ACTING INSULIN LAST NIGHT, STATED CONCERN WITH HIGH DOSE. CALL LIGHT WITHIN REACH AND SIDE RAILS UPX2. WILL CONT TO MONITOR.
[2020-09-02 09:57] LABS: Protein, Urine Quantitative 102.7 mg/dL (0.0-11.9)
--- NOTE | 2020-09-02 11:00 | NUR ---
VERIFIED TO DR ABOUT THE LONG ACTING INSULIN OF 40 UNITS AT HS; NO CHANGE OF ORDER AT THIS TIME.
[2020-09-02 15:12] LABS: Source, Urine Catheter
[2020-09-02 15:17] LABS: Appearance, Urine Clear (Clear); Bilirubin, Urine Neg (Neg); Blood, Urine 2+ (Neg); Color, Urine Yellow (P-Yellow); Glucose Qualitative, Urine Neg (Neg); Ketones, Urine Neg (Neg); Leukocyte Esterase, Urine Neg (Neg); Nitrite, Urine Neg (Neg); Protein, Urine 3+ (Neg); Urobilinogen, Urine NORM (Normal)
[2020-09-02 15:52] LABS: Amorphous Mod (0-Heavy); Bacteria Not Seen /hpf; Squamous Epithelial Cells Not Seen /hpf (Few); White Blood Cells, Urine 0-2 /hpf (0-5)
--- NOTE | 2020-09-02 19:19 | NUR ---
SHIFT SUMMARY PT AOX4; NELSON PLACED DUE TO RETENTION AFTER BLADDER SCAN- POSTVOIDAL IS AROUND 340ML. PT TOLERATED WELL. MEDICATED FOR PAIN PRIOR NELSON PLACEMENT. PT SCROTUM AND PENIS IS VERY SWOLLEN AND PAINFUL. BED IS IN THE LOWEST POSITION AND CALL LIGHT WITHIN REACH
[2020-09-03 04:45] LABS: BASOPHILS ABSOLUTE AUTO 0.05 K/mm3 (0.00-0.23); BASOPHILS PERCENT AUTO 1 % (0-2); EOSINOPHILS ABSOLUTE AUTO 0.26 K/mm3 (0.00-0.68); EOSINOPHILS PERCENT AUTO 5 % (0-6); Hemoglobin 10.6 g/dL (13.5-17.5); IMMATURE GRAN ABSOLUTE AUTO 0.01 K/mm3 (0.00-0.10); IMMATURE GRAN PERCENT AUTO 0 % (0-1); LYMPHOCYTES ABSOLUTE AUTO 0.35 K/mm3 (0.84-5.20); LYMPHOCYTES PERCENT AUTO 6 % (21-46); MONOCYTES PERCENT AUTO 14 % (4-13); Mean Corpuscular HGB 28.2 pg (26.0-34.0); Mean Corpuscular HGB Conc 31.2 g/dL (31.5-36.5); Mean Corpuscular Volume 90 fL (80-100); Mean Platelet Volume 10.1 fL (9.1-12.4); NEUTROPHILS ABSOLUTE AUTO 4.16 K/mm3 (1.96-9.15); NEUTROPHILS PERCENT AUTO 74 % (41-73); Platelet Count 160 K/mm3 (150-400); RDW Coefficient Variation 14.3 % (11.7-14.2); RDW Standard Deviation 47.3 fL (35.1-46.3); Red Blood Cell Count 3.76 M/mm3 (4.30-5.90); White Blood Cell Count 5.63 K/mm3 (4.00-11.30)
--- NOTE | 2020-09-03 04:51 | NUR ---
SHIFT SUMMARY- NO ACUTE CHANGES OVERNIGHT. PT. NELSON CATHETER PATENT AND DRAINING LARGE AMOUNT OF CLEAR YELLOW URINE. PT. HAD NO COMPLAINTS T/O THE NIGHT. ASLEEP MOST OF THE NIGHT, NO APPARENT DISTRESS NOTED. BP ELEVATED THIS AM, MEDICATION PER EMAR. APPEARS TO BE RESTING QUIETLY IN BED. CALL LIGHT WITHIN REACH AND SIDE RAILS UPX2. WILL CONT TO MONITOR.
[2020-09-03 05:07] LABS: Albumin, Blood 2.7 g/dL (3.4-5.0); Anion Gap 6 mmol/L (6-16); Blood Urea Nitrogen 78 mg/dL (8-24); Bun/Creatinine Ratio 20.1 (12.0-20.0); CO2, Blood 25 mmol/L (21-32); Calcium, Blood 8.3 mg/dL (8.5-10.1); Chloride, Blood 107 mmol/L (98-108); Creatinine, Blood 3.88 mg/dL (0.60-1.20); Glomerular Filtration Rate 17 (60-); Glucose, Blood 221 mg/dL (70-99); Magnesium, Blood 2.4 mg/dL (1.6-2.4); Phosphorus, Blood 5.6 mg/dL (2.5-4.9); Potassium, Blood 5.3 mmol/L (3.5-5.5); Sodium, Blood 138 mmol/L (136-145)
[2020-09-03 18:19] LABS: BASOPHILS ABSOLUTE AUTO 0.04 K/mm3 (0.00-0.23); BASOPHILS PERCENT AUTO 1 % (0-2); EOSINOPHILS ABSOLUTE AUTO 0.28 K/mm3 (0.00-0.68); EOSINOPHILS PERCENT AUTO 4 % (0-6); Hematocrit 33.3 % (37.0-53.0); Hemoglobin 10.4 g/dL (13.5-17.5); IMMATURE GRAN ABSOLUTE AUTO 0.02 K/mm3 (0.00-0.10); IMMATURE GRAN PERCENT AUTO 0 % (0-1); LYMPHOCYTES ABSOLUTE AUTO 0.45 K/mm3 (0.84-5.20); LYMPHOCYTES PERCENT AUTO 7 % (21-46); MONOCYTES ABSOLUTE AUTO 0.98 K/mm3 (0.16-1.47); MONOCYTES PERCENT AUTO 15 % (4-13); Mean Corpuscular HGB 28.3 pg (26.0-34.0); Mean Corpuscular HGB Conc 31.2 g/dL (31.5-36.5); Mean Corpuscular Volume 91 fL (80-100); Mean Platelet Volume 10.9 fL (9.1-12.4); NEUTROPHILS PERCENT AUTO 73 % (41-73); Platelet Count 166 K/mm3 (150-400); RDW Coefficient Variation 14.5 % (11.7-14.2); RDW Standard Deviation 48.2 fL (35.1-46.3); Red Blood Cell Count 3.67 M/mm3 (4.30-5.90); White Blood Cell Count 6.47 K/mm3 (4.00-11.30)
[2020-09-03 18:48] LABS: Albumin, Blood 2.8 g/dL (3.4-5.0); Albumin/Globulin Ratio 0.7 (0.8-1.8); Bilirubin, Total 0.9 mg/dL (0.1-1.0); Bun/Creatinine Ratio 19.8 (12.0-20.0); Calcium, Blood 8.5 mg/dL (8.5-10.1); Creatinine, Blood 4.09 mg/dL (0.60-1.20); Globulin, Blood 3.8 g/dL (2.2-4.0); Potassium, Blood 4.9 mmol/L (3.5-5.5); Total Protein, Blood 6.6 g/dL (6.4-8.2)
--- NOTE | 2020-09-03 19:46 | NUR ---
SHIFT SUMMARY DIOGO MAINTAINED 1 L FLUID RESTRICTION THIS SHIFT. R GREAT TOE WOUND CLEANSED AND RE-DRESSED. [facility] CALLED, IR DOCTOR DID COME AND SEE PT (BUT IT WAS DR MARINELLI'S COWORKER, NOT DR MARINELLI?), PT TO HAVE STENT PLACED IN LEG TOMORROW LIKELY PER PT'S REPORT OF DOCTOR CONVERSATION. GENERALIZED EDEMA, SCROTAL SWELLING. NELSON DRAINING WELL. DECLINED TO GET OUT OF BED THIS SHIFT DESPITE ENCOURAGEMENT. CBGS COVERED WITH INSULIN. INCONTINENT STOOL X1 THIS SHIFT. TELE NSR. LATE THIS AFTERNOON, PT STATED HE FELT VERY 'BAD' ALL OF A SUDDEN, PAINFUL SKIN AND JOINTS ALL OVER. CALLED DR MICHEL, HE ORDERED STAT LABS AND NS AT 75ML/HR X 500ML. TOOK MEDS PRESCRIBED, CALL LIGHT IN REACH, REPORT GIVEN TO NIGHT NURSE
[2020-09-04 04:46] LABS: BASOPHILS ABSOLUTE AUTO 0.05 K/mm3 (0.00-0.23); BASOPHILS PERCENT AUTO 1 % (0-2); EOSINOPHILS ABSOLUTE AUTO 0.26 K/mm3 (0.00-0.68); EOSINOPHILS PERCENT AUTO 5 % (0-6); Hematocrit 33.3 % (37.0-53.0); Hemoglobin 10.3 g/dL (13.5-17.5); IMMATURE GRAN ABSOLUTE AUTO 0.02 K/mm3 (0.00-0.10); IMMATURE GRAN PERCENT AUTO 0 % (0-1); LYMPHOCYTES ABSOLUTE AUTO 0.45 K/mm3 (0.84-5.20); LYMPHOCYTES PERCENT AUTO 9 % (21-46); MONOCYTES ABSOLUTE AUTO 0.78 K/mm3 (0.16-1.47); MONOCYTES PERCENT AUTO 16 % (4-13); Mean Corpuscular HGB 27.8 pg (26.0-34.0); Mean Corpuscular HGB Conc 30.9 g/dL (31.5-36.5); Mean Corpuscular Volume 90 fL (80-100); Mean Platelet Volume 10.5 fL (9.1-12.4); NEUTROPHILS ABSOLUTE AUTO 3.44 K/mm3 (1.96-9.15); NEUTROPHILS PERCENT AUTO 69 % (41-73); Platelet Count 155 K/mm3 (150-400); RDW Coefficient Variation 14.4 % (11.7-14.2); RDW Standard Deviation 46.9 fL (35.1-46.3); Red Blood Cell Count 3.71 M/mm3 (4.30-5.90)
[2020-09-04 05:05] LABS: Magnesium, Blood 2.3 mg/dL (1.6-2.4)
[2020-09-04 05:06] LABS: Albumin, Blood 2.7 g/dL (3.4-5.0); Albumin/Globulin Ratio 0.8 (0.8-1.8); Bilirubin, Direct 0.2 mg/dL (0.0-0.3); Bilirubin, Indirect 0.5 mg/dL (0.1-0.7); Bilirubin, Total 0.7 mg/dL (0.1-1.0); Bun/Creatinine Ratio 20.5 (12.0-20.0); Calcium, Blood 8.3 mg/dL (8.5-10.1); Globulin, Blood 3.5 g/dL (2.2-4.0); Phosphorus, Blood 5.9 mg/dL (2.5-4.9); Potassium, Blood 5.1 mmol/L (3.5-5.5); Total Protein, Blood 6.2 g/dL (6.4-8.2)
--- NOTE | 2020-09-04 06:36 | NUR ---
09/04/20 0600 NPO FOR PROCEDURE TODAY. SLEPT WELL ON AND OFF. MEDICATED FOR "GROIN" PAIN. GROIN AND LEGS SWOLLEN. TURNS SELF SIDE TO SIDE. BP SLIGHTLY ELEVATED THIS SHIFT AND PREVIOUS SHIFT. MEDICATED FOR HYPERTENSION ONCE SHIFT. NELSON CATH PATENT AND DRINING LARGE AMTS OF URINE. SEE MEDS GIVEN.
--- NOTE | 2020-09-04 09:09 | NUR ---
Pt gave consent to give care on 09/04/2020 from [id number].
--- NOTE | 2020-09-04 16:28 | NUR ---
PT COMPLAINING OF SKIN AND JOINTS SUDDENLY ACHING THIS AFTERNOON SIMILAR TO LAST NIGHT'S EPISODE. VSS, DR LUND INFORMED. WCTM
--- NOTE | 2020-09-04 18:37 | NUR ---
SHIFT SUMMARY IN AM, PT NPO FOR REVASCULARIZATION. THIS WAS CANCELED AFTER DR LUND'S CONVERSATION WITH PT. ISIDORO IS PRETTY WITHDRAWN AND DEPRESSED THIS SHIFT . HE IS UPSET BY DR LUND'S NEWS THAT THE SURGERY THAT WILL POSSIBLY SAVE HIS TOE WOULD DAMAGE HIS KIDNEYS, LIKELY CAUSING DIALYSIS. WORKED WITH PT. HAD BM IN BATHROOM. NELSON REMOVED AT 230PM. URINATED 150ML AT 5PM, WCTM THIS. COMPLAINED OF PAINFUL SKIN AND JOINTS WITH SUDDEN ONSET THIS AFTERNOON, SIMILAR TO LAST NIGHTS EPISODE. DR LUND INFORMED, VSS. PACER INTERROGATED IN AM. STILL ON 1L FLUID RESTRICTION. CALL LIGHT IN REACH, WCTM
[2020-09-05 04:40] LABS: Hemoglobin 10.9 g/dL (13.5-17.5)
[2020-09-05 05:08] LABS: Albumin, Blood 2.8 g/dL (3.4-5.0); Anion Gap 7 mmol/L (6-16); Blood Urea Nitrogen 87 mg/dL (8-24); Bun/Creatinine Ratio 19.5 (12.0-20.0); CO2, Blood 27 mmol/L (21-32); Calcium, Blood 8.5 mg/dL (8.5-10.1); Chloride, Blood 106 mmol/L (98-108); Creatinine, Blood 4.46 mg/dL (0.60-1.20); Glomerular Filtration Rate 14 (60-); Glucose, Blood 147 mg/dL (70-99); Magnesium, Blood 2.5 mg/dL (1.6-2.4); Phosphorus, Blood 6.7 mg/dL (2.5-4.9); Potassium, Blood 5.7 mmol/L (3.5-5.5); Sodium, Blood 140 mmol/L (136-145)
--- NOTE | 2020-09-05 08:03 | NUR ---
09/05/20 0545 PT HAD DOOR CLOSED AND RN HEARD NOISE IN ROOM. PT HAD STOOD TO VOID AND WAS FOUND LAYING ON FLOOR WITH URINE CONTAINER AND URINE ON FLOOR. PT STATED HIS LEFT KNEE "GAVE OUT" AND HE FELL. STAFF CALLED AND LIFT USED TO GET HIM UP AND TO BED. STATES NO DISCOMFORT EXCEPT SORE LEFT KNEE. ABRASION WITH BLOOD NOTED ON LEFT FOREARM. DRESSING ON RT FOOT GREAT TOE FELL OFF. BOTH SITES WERE CLEANSED AND REDRESSED. VITALS TAKEN AND STABLE. ON=CALL MD NOTIFIED OF EVENTS. SEE ORDERS. BED ALARM ON AND PT REMINDED TO NOT GET UP WITHOUT STAFF HELPING.
[2020-09-05 13:11] LABS: M-SPIKE, % Not Observed % (Not Observed); PROTEIN,TOTAL,URINE 94.8 mg/dL (Not Estab.)
[2020-09-05 14:11] LABS: ALBUMIN 2.9 g/dL (2.9-4.4); ALPHA-1-GLOBULIN 0.3 g/dL (0.0-0.4); ALPHA-2-GLOBULIN 0.7 g/dL (0.4-1.0); BETA GLOBULIN 0.9 g/dL (0.7-1.3); GAMMA GLOBULIN 1.1 g/dL (0.4-1.8); IMMUNOGLOBULIN A, QN, SERUM 337 mg/dL (61-437); IMMUNOGLOBULIN G, QN, SERUM 1051 mg/dL (603-1613); IMMUNOGLOBULIN M, QN, SERUM 79 mg/dL (20-172); M-SPIKE Not Observed g/dL (Not Observed); PROTEIN, TOTAL, SERUM 5.9 g/dL (6.0-8.5)
--- NOTE | 2020-09-05 18:27 | NUR ---
SHIFT SUMMARY PT HAS BEEN SLEEPING MOST OF THE AFTERNOON AND EVENING. MEDICATED FOR PAIN IN LEFT KNEE PER EMAR. PT HAD FALLEN IN THE EARLY AM AND NO C/O PAIN IN THE LEFT KNEE. THIS RN EDUCATED PT ON THE IMPORTANCE OF USING ICE AND ELEVATING FOR PAIN BUT PT DECLINED TO USE THE ICE AND KEEP KNEE ELEVATED. NO ACUTE CHANGES AT THIS TIME. CALL LIGHT IN REACH. WILL CONTINUE TO MONITOR AND REPORT TO ONCOMING RN.
[2020-09-05 18:43] LABS: Albumin, Blood 2.7 g/dL (3.4-5.0); Anion Gap 5 mmol/L (6-16); Blood Urea Nitrogen 92 mg/dL (8-24); Bun/Creatinine Ratio 19.9 (12.0-20.0); CO2, Blood 28 mmol/L (21-32); Calcium, Blood 8.4 mg/dL (8.5-10.1); Chloride, Blood 107 mmol/L (98-108); Creatinine, Blood 4.62 mg/dL (0.60-1.20); Glomerular Filtration Rate 14 (60-); Glucose, Blood 209 mg/dL (70-99); Phosphorus, Blood 6.4 mg/dL (2.5-4.9); Potassium, Blood 5.6 mmol/L (3.5-5.5); Sodium, Blood 140 mmol/L (136-145)
--- NOTE | 2020-09-06 05:02 | NUR ---
SHIFT SUMMARY PT SLEPT OFF AND ON THROUGHOUT THE NIGHT. WHEN AWAKE PT WOULD SIT ON THE SIDE OF THE BED. PT DID EXPRESS CONCERN ABOUT HIS LEFT KNEE WHICH HE HAD A FALL ON RECENTLY. MEDICATED X 1 W/ PO DILAUDID WITH GOOD EFFECT. PT DECLINED AN ICE PACK. ASLEEP AT START OF SHIFT. ONCE HE WOKE, PT ATE DINNER WELL. PT HAS FLAT AFFECT BUT WAS COOPERATIVE WITH CARE THIS EVENING. PT DENIES SOB. VITAL SIGNS STABLE. WILL CONTINUE TO MONITOR AND REPORT TO DAY RN.
[2020-09-06 05:08] LABS: BASOPHILS ABSOLUTE AUTO 0.06 K/mm3 (0.00-0.23); BASOPHILS PERCENT AUTO 1 % (0-2); EOSINOPHILS ABSOLUTE AUTO 0.31 K/mm3 (0.00-0.68); EOSINOPHILS PERCENT AUTO 5 % (0-6); Hematocrit 33.9 % (37.0-53.0); Hemoglobin 10.4 g/dL (13.5-17.5); IMMATURE GRAN ABSOLUTE AUTO 0.04 K/mm3 (0.00-0.10); IMMATURE GRAN PERCENT AUTO 1 % (0-1); LYMPHOCYTES ABSOLUTE AUTO 0.45 K/mm3 (0.84-5.20); LYMPHOCYTES PERCENT AUTO 8 % (21-46); MONOCYTES PERCENT AUTO 17 % (4-13); Mean Corpuscular HGB 28.2 pg (26.0-34.0); Mean Corpuscular HGB Conc 30.7 g/dL (31.5-36.5); Mean Corpuscular Volume 92 fL (80-100); Mean Platelet Volume 10.7 fL (9.1-12.4); NEUTROPHILS ABSOLUTE AUTO 3.95 K/mm3 (1.96-9.15); NEUTROPHILS PERCENT AUTO 68 % (41-73); Platelet Count 159 K/mm3 (150-400); RDW Coefficient Variation 14.5 % (11.7-14.2); Red Blood Cell Count 3.69 M/mm3 (4.30-5.90); White Blood Cell Count 5.81 K/mm3 (4.00-11.30)
[2020-09-06 05:26] LABS: Bun/Creatinine Ratio 19.3 (12.0-20.0); Calcium, Blood 8.4 mg/dL (8.5-10.1); Creatinine, Blood 4.67 mg/dL (0.60-1.20); Potassium, Blood 5.4 mmol/L (3.5-5.5)
[2020-09-06 07:10] LABS: ANTIGLOMERULAR BM AB 6 units (0-20)
[2020-09-06 13:09] LABS: ANA DIRECT Negative (Negative); ANTIMYELOPEROXIDASE (MPO) ABS <9.0 U/mL (0.0-9.0); ANTIPROTEINASE 3 (PR-3) ABS <3.5 U/mL (0.0-3.5); ATYPICAL PANCA <1:20 titer (Neg:<1:20); CYTOPLASMIC (C-ANCA) <1:20 titer (Neg:<1:20); PERINUCLEAR (P-ANCA) <1:20 titer (Neg:<1:20)
--- NOTE | 2020-09-06 18:45 | NUR ---
SHIFT SUMMARY PT HAS BEEN AWAKE A LOT THIS SHIFT. WORKED WITH PHYSICAL THERAPY TODAY. MEDICATED FOR PAIN IN LEFT KNEE X1 THIS SHIFT. PT ABLE TO WALK ON IT BETTER TODAY. APPETITE IS GOOD. DR. DUGGAN IN TO SEE PT. SEE WOUND CARE ORDERS. DRESSING TO RIGHT GREAT TOE C/D/I. NO ACUTE CHANGES AT THIS TIME. CALL LIGHT IN REACH.
[2020-09-07 05:00] LABS: BASOPHILS ABSOLUTE AUTO 0.06 K/mm3 (0.00-0.23); BASOPHILS PERCENT AUTO 1 % (0-2); EOSINOPHILS ABSOLUTE AUTO 0.43 K/mm3 (0.00-0.68); EOSINOPHILS PERCENT AUTO 8 % (0-6); Hematocrit 34.8 % (37.0-53.0); Hemoglobin 10.6 g/dL (13.5-17.5); IMMATURE GRAN ABSOLUTE AUTO 0.03 K/mm3 (0.00-0.10); IMMATURE GRAN PERCENT AUTO 1 % (0-1); LYMPHOCYTES PERCENT AUTO 7 % (21-46); MONOCYTES ABSOLUTE AUTO 0.85 K/mm3 (0.16-1.47); MONOCYTES PERCENT AUTO 15 % (4-13); Mean Corpuscular HGB Conc 30.5 g/dL (31.5-36.5); Mean Corpuscular Volume 92 fL (80-100); Mean Platelet Volume 10.8 fL (9.1-12.4); NEUTROPHILS ABSOLUTE AUTO 3.86 K/mm3 (1.96-9.15); NEUTROPHILS PERCENT AUTO 69 % (41-73); Platelet Count 162 K/mm3 (150-400); RDW Coefficient Variation 14.7 % (11.7-14.2); RDW Standard Deviation 48.9 fL (35.1-46.3); Red Blood Cell Count 3.78 M/mm3 (4.30-5.90); White Blood Cell Count 5.63 K/mm3 (4.00-11.30)
[2020-09-07 05:21] LABS: Bun/Creatinine Ratio 20.8 (12.0-20.0); Calcium, Blood 8.4 mg/dL (8.5-10.1); Creatinine, Blood 4.48 mg/dL (0.60-1.20); Potassium, Blood 5.1 mmol/L (3.5-5.5)
--- NOTE | 2020-09-07 05:35 | NUR ---
SHIFT SUMMARY PT HAD AN UNEVENTFUL NIGHT. ENCOURAGED PT TO INTAKE FLUIDS BUT WAS MOSTLY UNSUCCESSFUL PT SLEPT MOST OF THE NIGHT. PT WILL WAKE EASILY AND ANSWERS QUESTIONS APPROPRIATELY BUT WOULD FALL BACK ASLEEP SHORTLY AFTER. SWELLING REMAINS TO BLE'S AND SCROTUM. WORSE IN SCROTUM. PT DENIES SOB. PT STARTED SHIFT ON RA, O2 SATS 91%. SHORTLY AFTER PT PLACED BACK ON 2 L O2 VIA NC TO MAINTAIN O2 SATS > 90%. FLAT AFFECT. VITAL SIGNS STABLE. NO ACUTE CHANGES THIS SHIFT. WILL CONTINUE TO MONITOR.
[2020-09-07] MEDS ORDERED: ATOR10 PO (13:59)
[2020-09-07] MEDS ORDERED: CITA20 PO (14:00)
[2020-09-07] MEDS ORDERED: FERSU300 PO (14:00)
[2020-09-07] MEDS ORDERED: TAMS.4ER PO (14:01)
[2020-09-07] MEDS ORDERED: MIRALAX17 GM PO (14:01)
--- NOTE | 2020-09-07 15:37 | NUR ---
PT BP 187/99, 10 MG PO HYDRALAZINE GIVEN PER PRN ORDERS. WILL REASSESS BP WITHIN THE HOUR. WILL NOT DISCHARGE PT UNTIL BP STABALIZES.
--- NOTE | 2020-09-07 18:16 | NUR ---
DISCHARGE SUMMARY PT DC'D @ APPROX 1810 VIA WHEELCHAIR BY CLARICE. PT TAKEN DOWN TO PT ENTRANCE TO WAIT FOR TAXI ARRIVAL. IV WAS REMOVED AND SITE APPEARED WNL. PORTABLE O2 PROVIDED BY [facility] AND WAS ON PT PRIOR TO LEAVING UNIT. [facility] CONTACTED TO NOTIFY THEM THAT PT IS ON THEIR WAY HOME AND WILL BE AWAITING THEIR ARRIVAL TO FINISH HOME O2 SET UP. PT STATED HE HAD ALL OF HIS BELONGINGS. DC INSTRUCTIONS REVIEWED WITH PT AND HE HAD NO FURTHER QUESTIONS. NEEDED RX FAXED TO PT PREFERRED PHARMACY. BANDAGE ON R GREAT TOE WAS CHANGED THIS AFTERNOON PRIOR TO DC AND PT IS TO FOLLOW UP WITH DR DUGGAN.
--- NOTE | 2020-09-11 00:54 | NUR ---
REVIEWED AND DOCUMENTED FURTHER INFORMATION ON PT'S POST FALL RISK ASSESSMENT
== END 2020-09-07 18:12 | disposition home health service (06) | DRG 264 ==
LOC: ER 09:42 → MEDS 13:22 → ENPENDDIS 09-07 11:59 → MEDS 09-07 18:12
PROVIDERS: Emergency Medicine; Family Medicine; Internal Medicine; Internal Medicine Nephrology; Nurse Practitioner Acute Care; ADMIT Internal Medicine
PROC: 0JBQ0ZZ Excision of Right Foot Subcutaneous Tissue and Fascia, Open Approach (ICD-10-PCS; principal; 2020-09-04)
DX: I13.2 Hypertensive heart and chronic kidney disease with heart failure and with stage 5 chronic kidney disease, or end stage renal disease (principal); J96.01 Acute respiratory failure with hypoxia; I50.23 Acute on chronic systolic (congestive) heart failure; N04.9 Nephrotic syndrome with unspecified morphologic changes; N18.5 Chronic kidney disease, stage 5; N17.9 Acute kidney failure, unspecified; N39.0 Urinary tract infection, site not specified; Z20.822 Contact with and (suspected) exposure to COVID-19; L89.92 Pressure ulcer of unspecified site, stage 2; E11.22 Type 2 diabetes mellitus with diabetic chronic kidney disease; I25.10 Atherosclerotic heart disease of native coronary artery without angina pectoris; I73.9 Peripheral vascular disease, unspecified; D63.1 Anemia in chronic kidney disease; E87.5 Hyperkalemia; E11.621 Type 2 diabetes mellitus with foot ulcer; Z90.5 Acquired absence of kidney; E61.1 Iron deficiency; E11.65 Type 2 diabetes mellitus with hyperglycemia; Z95.1 Presence of aortocoronary bypass graft; E78.5 Hyperlipidemia, unspecified; Z95.810 Presence of automatic (implantable) cardiac defibrillator; Z91.14 Patient's other noncompliance with medication regimen; L97.512 Non-pressure chronic ulcer of other part of right foot with fat layer exposed; I16.0 Hypertensive urgency
CPT/HCPCS: 0241U; 36415; 51701; 71045; 73560-LT; 73660; 76770; 80048; 80053; 80069; 81001; 81050; 82248; 82784; 82947; 83036; 83516; 83520; 83605; 83735; 83880; 84100; 84156; 84165; 84166; 84443; 84484; 85014; 85018; 85025; 85027; 85651; 86038; 86140; 86256; 86334; 86335; 87077; 87086; 87186; 90471; 90714; 93005; 93010; 93283; 93922; 94760; 94761; 96365-59; 96375-59; 97110; 97116; 97163; 97530; 99285-25; A9270; J0696; J1644; J1940; J2405; J7030; J7042; J7070; P9041

== ENCOUNTER 2020-09-30 08:48 | Emergency (ER) | payer MEDICARE ==
[~2020-09-30] VITALS: Ht 180.3 cm; Wt 111.1 kg
[~2020-09-30 08:48] MED LIST changes: +ASPIR 8181 M1 PO; +ATOR10 PO; +COREG12.5 M1 PO; +HUMULIN N100 UNIT/6 SC; +NOVOLIN R100 UNIT/2 SC; +OXYCODONE-ACET1 EAC3 PO
[2020-09-30 10:10] LABS: Calcium, Ionized (POC) 1.14 mmol/L (1.10-1.46); Chloride (POC) 112 mmol/L (98-108); Creatinine (POC) 3.1 mg/dL (0.8-1.3); Glucose (ISTAT POC) 267 mg/dL (70-99); Hemoglobin (POC) 11.2 g/dL (13.5-17.5); Potassium (POC) 4.1 mmol/L (3.5-5.5); Sodium (POC) 143 mmol/L (135-148); Total CO2 (POC) 25 mmol/L (21-32)
== END 2020-09-30 11:27 | disposition home or self-care (01) ==
LOC: ER 08:48
PROVIDERS: Emergency Medicine
DX: M21.331 Wrist drop, right wrist (principal); G62.9 Polyneuropathy, unspecified; I13.0 Hypertensive heart and chronic kidney disease with heart failure and stage 1 through stage 4 chronic kidney disease, or unspecified chronic kidney disease; E11.22 Type 2 diabetes mellitus with diabetic chronic kidney disease; I43 Cardiomyopathy in diseases classified elsewhere; N18.4 Chronic kidney disease, stage 4 (severe); I50.22 Chronic systolic (congestive) heart failure; I25.810 Atherosclerosis of coronary artery bypass graft(s) without angina pectoris; E78.5 Hyperlipidemia, unspecified; Z95.1 Presence of aortocoronary bypass graft; Z95.0 Presence of cardiac pacemaker
CPT/HCPCS: 29125; 36415; 71046; 80047; 85014; 99284-25; L3917